=== PATIENT | male | born 1945 | race Caucasian/White ===

== ENCOUNTER 2020-01-18 12:40 | Emergency (ER) | payer MEDICARE ==
[2020-01-18 12:48] VITALS: RESP 18; TEMP 98
[2020-01-18] MEDS ORDERED: ONDANSETRON 4 MG/2 ML VIAL IVP STA (12:59)
[2020-01-18] MEDS ORDERED: SODIUM CHLORIDE 0.9% 500 ML 500 ML IV ONE (12:59)
[2020-01-18] MEDS ORDERED: MORPHINE SULFATE 4 MG/ML SYRINGE IV STA (12:59)
--- NOTE | 2020-01-18 13:14 | ED ---
Fall HPI - General Chief Complaint: Fall Stated Complaint: Fall, R ankle injury Source: patient Mode of arrival: EMS - History of Present Illness Initial Comments: This is a 74-year-old male with a history ofdiabetes and hyperlipidemia who presents emergency Department after a fall. The patient was reportedly up on a ladder about 8 feet. He lost his balance and fell off a ladder. He injured his ankle and has pain in his lower back as well. The patient states that he believes that he hit his head however is unsure. He denies any headache or neck pain however. The patient is not taking anticoagulation. Patient did receive 100 g of fentanyl and route and also some Zofran for some vomiting that he sustained. Patient complains mostly of pain in the right ankle and lower back. He denies any abdominal pain. Admits to some nausea however improved. Denies any diarrhea or constipation. Denies any chest pain or palpitations. No shortness of breath. Patient states he has no weakness or tingling in the extremity that is injured. No other acute complaints. - Related Data Home Medications Medication Instructions Recorded Confirmed Atorvastatin [Lipitor] 20 mg PO DAILY 01/02/14 01/02/14 glipiZIDE [Glucotrol] 5 mg PO AC-BRKFST 01/02/14 01/02/14 ramipriL [Altace] 5 mg PO BID 01/02/14 01/02/14 Previous Rx's Medication Instructions Recorded Hydrocodone/Acetaminophen [Frazee 1 each PO Q6HR PRN #20 tab 01/02/14 5-325] Allergies Allergy/AdvReac Type Severity Reaction Status Date / Time No Known Allergies Allergy Verified 01/02/14 17:08 Review of Systems ROS Statement: Those systems with pertinent positive or pertinent negative responses have been documented in the HPI. ROS Other: All systems not noted in ROS Statement are negative. Past Medical History Past Medical History: Diabetes Mellitus, Hypertension Additional Past Medical History / Comment(s): Kidney stones. History of Any Multi-Drug Resistant Organisms: None Reported Past Surgical History: Orthopedic Surgery Additional Past Surgical History / Comment(s): para thyroid surgery, prostate surgery Past Psychological History: No Psychological Hx Reported Smoking Status: Never smoker Past Alcohol Use History: Occasional Past Drug Use History: None Reported General Exam - General Exam Comments Initial Comments: Constitutional: [Awake alert] patient appears uncomfortable, was vomiting when I entered the room Head: [Normocephalic atraumatic], no obvious signs of head trauma. Eyes: [no conjunctival injection] [No scleral icterus] [EOMI], pupils are 3 mm and reactive bilaterally Neck: [No JVD] [Supple], no midline tenderness Heart: [Regular rate rhythm] [normal S1-S2] [no murmurs] Lungs: [Clear to auscultation bilaterally] [No wheezing] [No rales] Abdomen: [Soft] somewhat protuberant [nontender] back: The patient has no tenderness in the thoracic midline spine. No tenderness really in the lumbar spine as well. He has pain over the sacrum and coccygeal area. Extremities: [Non edematous] [DP pulses intact] [Radial pulses intact], there is swelling to the right lateral ankle. The patient is able to move his toes. DP is intact Neuro: [A&Ox3], the patient has 5 out of 5 strength in upper and lower [place] bilaterally, sensation intact to light touch [No focal neurologic deficits] Psych: [Appropriate mood and affect] Limitations: no limitations Course Vital Signs 01/18/20 01/18/20 12:44 13:52 Temperature 98 F Pulse Rate 76 90 Respiratory 18 18 Rate Blood Pressure 154/98 148/94 O2 Sat by Pulse 96 98 Oximetry - Reevaluation(s) Reevaluation #1: KG interpreted at 1310 shows normal sinus rhythm with a rate of 93. There are no abnormal ST segment changes or T-wave inversions. QTC is 477. Other intervals are normal. There is one PVC. 01/18/20 13:25 Medical Decision Making - Medical Decision Making his is 74-year-old male who presents emergency Department after a fall. The patient is found to have a calcaneal fracture, distal fibular fracture, T12 fracture, and sacral fracture. The patient does have a mild hematoma anterior to the sacrum. The patient did require multiple pain medications. He also is very nauseated and this is why the CT the abdomen and pelvis was performed however did not reveal any intra-abdominal organ injuries. Patient's going to be transferred to [facility] for his injuries. I did speak with Dr. Maria and Dr. Lyel who accepted transfer. Family was updated and agree with plan of care. - Lab Data Result diagrams: 01/18/20 13:12 01/18/20 13:12 Lab Results 01/18/20 01/18/20 01/18/20 Range/Units 13:12 13:12 13:12 WBC 15.1 H (3.8-10.6) k/uL RBC 4.06 L (4.30-5.90) m/uL Hgb 11.7 L (13.0-17.5) gm/dL Hct 35.2 L (39.0-53.0) % MCV 86.7 (80.0-100.0) fL MCH 28.7 (25.0-35.0) pg MCHC 33.1 (31.0-37.0) g/dL RDW 14.0 (11.5-15.5) % Plt Count 191 (150-450) k/uL Neutrophils % 89 % Lymphocytes % 6 % Monocytes % 3 % Eosinophils % 2 % Basophils % 0 % Neutrophils # 13.4 H (1.3-7.7) k/uL Lymphocytes # 0.8 L (1.0-4.8) k/uL Monocytes # 0.5 (0-1.0) k/uL Eosinophils # 0.3 (0-0.7) k/uL Basophils # 0.0 (0-0.2) k/uL PT 10.7 (9.0-12.0) sec INR 1.0 (<1.2) APTT 20.0 L (22.0-30.0) sec Sodium 142 (137-145) mmol/L Potassium 4.6 (3.5-5.1) mmol/L Chloride 110 H (98-107) mmol/L Carbon Dioxide 21 L (22-30) mmol/L Anion Gap 11 mmol/L BUN 32 H (9-20) mg/dL Creatinine 1.55 H (0.66-1.25) mg/dL Est GFR (CKD-EPI)AfAm 50 (>60 ml/min/1.73 sqM) Est GFR (CKD-EPI)NonAf 43 (>60 ml/min/1.73 sqM) Glucose 268 H (74-99) mg/dL POC Glucose (mg/dL) (75-99) mg/dL POC Glu Steel Rule Inspector ID Calcium 8.5 (8.4-10.2) mg/dL Serum Alcohol <10 mg/dL 01/18/20 Range/Units 14:43 WBC (3.8-10.6) k/uL RBC (4.30-5.90) m/uL Hgb (13.0-17.5) gm/dL Hct (39.0-53.0) % MCV (80.0-100.0) fL MCH (25.0-35.0) pg MCHC (31.0-37.0) g/dL RDW (11.5-15.5) % Plt Count (150-450) k/uL Neutrophils % % Lymphocytes % % Monocytes % % Eosinophils % % Basophils % % Neutrophils # (1.3-7.7) k/uL Lymphocytes # (1.0-4.8) k/uL Monocytes # (0-1.0) k/uL Eosinophils # (0-0.7) k/uL Basophils # (0-0.2) k/uL PT (9.0-12.0) sec INR (<1.2) APTT (22.0-30.0) sec Sodium (137-145) mmol/L Potassium (3.5-5.1) mmol/L Chloride (98-107) mmol/L Carbon Dioxide (22-30) mmol/L Anion Gap mmol/L BUN (9-20) mg/dL Creatinine (0.66-1.25) mg/dL Est GFR (CKD-EPI)AfAm (>60 ml/min/1.73 sqM) Est GFR (CKD-EPI)NonAf (>60 ml/min/1.73 sqM) Glucose (74-99) mg/dL POC Glucose (mg/dL) 303 H (75-99) mg/dL POC Glu Steel Rule Inspector ID Vinh Franklin Calcium (8.4-10.2) mg/dL Serum Alcohol mg/dL Disposition Clinical Impression: Sacral fracture, Thoracic compression fracture, Calcaneal fracture Disposition: OTHER INSTITUTION NOT DEFINED Condition: Stable Referrals: Jerzy Haney MD [Primary Care Provider] - 1-2 days - Out of Hospital Transfer - Req. Specs Out of Hospital Transfer - Requested Specifics: Other Emergency Center
[2020-01-18 13:21] LABS: Basophils % (A) 0 %; Eosinophils # (A) 0.3 k/uL (0-0.7); Eosinophils % (A) 2 %; HCT 35.2 % (39.0-53.0); HGB 11.7 gm/dL (13.0-17.5); Lymphocytes # (A) 0.8 k/uL (1.0-4.8); Lymphocytes % (A) 6 %; MCH 28.7 pg (25.0-35.0); MCHC 33.1 g/dL (31.0-37.0); MCV 86.7 fL (80.0-100.0); Mean Platelet Volume 7.9; Monocytes # (A) 0.5 k/uL (0-1.0); Monocytes % (A) 3 %; Neutrophils # (A) 13.4 k/uL (1.3-7.7); Neutrophils % (A) 89 %; Platelet Count 191 k/uL (150-450); RBC 4.06 m/uL (4.30-5.90); WBC 15.1 k/uL (3.8-10.6)
[2020-01-18 13:31] LABS: African American GFR (CKD) 50 (>60 ml/min/1.73 sqM); Alcohol <10 mg/dL; Anion Gap 11 mmol/L; Blood Urea Nitrogen 32 mg/dL (9-20); Calcium 8.5 mg/dL (8.4-10.2); Carbon Dioxide 21 mmol/L (22-30); Chloride 110 mmol/L (98-107); Glucose 268 mg/dL (74-99); Non-African American GFR(CKD) 43 (>60 ml/min/1.73 sqM); Potassium 4.6 mmol/L (3.5-5.1); Sodium 142 mmol/L (137-145)
[2020-01-18 13:39] LABS: Prothrombin Time 10.7 sec (9.0-12.0)
--- NOTE | 2020-01-18 13:58 | XR ---
EXAMINATION TYPE: XR ankle complete RT DATE OF EXAM: 01/18/2020 COMPARISON: NONE HISTORY: Pain TECHNIQUE: Frontal, lateral and oblique images of the right ankle are obtained. COMPARISON: None. FINDINGS: There Is evidence of calcaneal fracture posteriorly. There is also lateral osseous componen t noted adjacent to the distal fibula and this may reflect fibular fracture. Ankle mortise appears to be intact. Soft tissue swelling is seen. Vascular calcifications are noted. IMPRESSION: 1. Evidence for calcaneal fracture. 2. Suspected additional fracture involving the distal fibula.
--- NOTE | 2020-01-18 13:58 | CT ---
EXAMINATION TYPE: CT brain mo[place] owen DATE OF EXAM: 01/18/2020 COMPARISON: None HISTORY: Fall from ladder CT DLP: 1354.[address] of the brain was performed. The ventricles, basal cisterns and sulci overlying the cerebral convexities demonstrate mild enlargem ent. There is no evidence for intracranial hemorrhage or sulcal effacement. There is decreased attenuatio n about the periventricular white matter and deep white matter of both cerebral hemispheres, compatib le with chronic small vessel ischemia. No mass effects are seen. If symptoms persist consider MRI. Osseous calvarium is intact. IMPRESSION: 1. Age related atrophic and chronic small vessel ischemic change without acute intracranial process seen at this time. CT Cervical Spine: Unenhanced CT of the cervical spine was performed with bone and soft tissue window settings submitted . Coronal and sagittal reconstruction is obtained. There is normal alignment and prevertebral soft tissues. No evidence for acute cervical fracture . Scattered degenerative disc disease and spondylosis. Biapical scarring. IMPRESSION: 1. No evidence for acute fracture or subluxation of the cervical spine.
--- NOTE | 2020-01-18 13:59 | XR ---
EXAMINATION TYPE: XR chest 1V portable DATE OF EXAM: 01/18/2020 HISTORY: Shortness of breath. COMPARISON: None. TECHNIQUE: Single view of the chest is submitted. FINDINGS: Demonstrated are scattered senescent parenchymal change. There is no evidence for focal infiltrate. The heart is stable. There is ectasia of the thoracic aorta. Hilar and mediastinal structures are within normal limits. Degenerative changes are seen of the dorsal spine. IMPRESSION: 1. Chronic changes without evidence for acute pulmonary disease.
--- NOTE | 2020-01-18 13:59 | XR ---
EXAMINATION TYPE: XR pelvis AP view DATE OF EXAM: 01/18/2020 CLINICAL HISTORY: pain TECHNIQUE: Single view the pelvis is submitted. FINDINGS: No evidence for fracture, dislocation or bony lesion. Joint spaces are well-preserved. S I joints appear symmetric. IMPRESSION: 1. No acute fracture or dislocation seen. ICD 10 NO FRACTURE, INITIAL EVALUATION
--- NOTE | 2020-01-18 14:08 | CT ---
EXAMINATION TYPE: CT lumbar spine wo con DATE OF EXAM: 01/18/2020 1:51 PM COMPARISON: None HISTORY: Fall from ladder CT DLP: 1391.6 mGycm Automated exposure control for dose reduction was used. Unenhanced CT of the lumbar spine was performed. Bone and soft tissue window settings are submitted as well as coronal and sagittal reconstructions. There is superior endplate compression fracture noted to involve T11 and T12 estimated loss of height at T11 is approximately 30%. There is mild bony retropulsion identified measuring 4 mm. Mild effacem ent of the ventral thecal sac. Estimated loss of height involving the T12 vertebral segment is approx imately 40%. There is 6.6 mm bony retropulsion with bony fragment noted. Cord contact is difficult t o exclude as is cord compression. L1-L2: Normal disc space height. No disc herniation protrusion or central stenosis. No facet joint arthropathy. No evidence for foraminal encroachment. L2-L3: Degenerative disc space narrowing. No disc herniation protrusion or central stenosis. No face t joint arthropathy. No evidence for foraminal encroachment. L3-L4: Degenerative disc space narrowing. No disc herniation protrusion or central stenosis. No face t joint arthropathy. No evidence for foraminal encroachment. L4-L5: Mild degenerative disc space narrowing. Grade 1 anterolisthesis L4 and L5 measuring 3 mm. Post erior disc bulge resulting in moderate central stenosis. Facet joint arthropathy. L5-S1: Degenerative disc space narrowing with posterior disc bulge. No evidence for disc herniation o r protrusion. No central stenosis identified. IMPRESSION: 1. Superior endplate compression fractures of T11 and T12 greatest at T12. There is bony retropulsion at each level again greatest at T12 where a bony fragment is noted. T12 without cord contact or cord compression is difficult to exclude. No additional fractures identified. 2. Degenerative disc disease with disc bulging and central stenosis at L4-5.
[2020-01-18 14:47] LABS: Glucose,Whole Blood 303 mg/dL (75-99)
[2020-01-18] MEDS ORDERED: INSULIN ASPART (NovoLOG) 100 UNIT/ML VIAL SQ ONE (15:00)
--- NOTE | 2020-01-18 15:02 | CT ---
EXAMINATION TYPE: CT abdomen pelvis wo con DATE OF EXAM: 01/18/2020 COMPARISON: 07/13/2012 HISTORY: vomiting CT DLP: 570.4 mGycm Automated exposure control for dose reduction was used. There is some mild patchy infiltrate and atelectasis at the lung bases bilaterally. There is no pleur al effusion. Thoracic aorta is atheromatous and tortuous. There are small hepatic cysts measuring les s than 1 cm. There is small calcified gallstone. The bile ducts are not dilated. Spleen appears intac t. There is no evidence of pancreatic mass. The stomach is intact. There is small hiatal hernia. There is 2 cm lipoma of the left adrenal gland. The kidneys show no hydronephrosis. There is intermed iate density exophytic 1.8 cm cyst anterior left kidney. There is no retroperitoneal adenopathy. Uret ers are not dilated. Appendix appears normal. Bladder distends smoothly. There is prostatic calcifica tion. Prostate measures 5.2 cm. There is no inguinal hernia. There is some mild presacral fat strandi ng. There is a fracture of the mid sacrum with anterior displacement of the lower fragments 7 mm. Thi s is at the S2-S3 junction. There is no mesenteric edema. There is no ascites or free air. There is no bowel obstruction. There i s compression deformity of T12 and T11 vertebra 15% that appear to be acute fractures. There is T12 f ragment extension 25% into the spinal canal. The hip joints are intact. The pelvic ring is intact. Sacroiliac joints appear intact. IMPRESSION: Mildly displaced sacral fracture with presacral mild hematoma. Acute compression fractures of T11 and T12 with T12 fragment extension into the spinal canal. Left adrenal lipoma increased compared to old exam. There is clearing of the left renal stone and hyd ronephrosis compared to old exam.
[2020-01-18] MEDS ORDERED: MORPHINE SULFATE 4 MG/ML SYRINGE IVP STA (16:26)
[2020-01-18] MEDS ORDERED: TRIMETHOBENZAMIDE 100 MG/ML 2 ML VIAL IM STA (16:27)
[2020-01-18 16:52] VITALS: BP 142/87; PULSE 92
== END 2020-01-18 17:24 | disposition other institution (70) ==
LOC: EC 12:40
DX: S92.001A Unspecified fracture of right calcaneus, initial encounter for closed fracture (principal); S32.10XA Unspecified fracture of sacrum, initial encounter for closed fracture; S22.089A Unspecified fracture of T11-T12 vertebra, initial encounter for closed fracture; E11.9 Type 2 diabetes mellitus without complications; I10 Essential (primary) hypertension; E78.5 Hyperlipidemia, unspecified; Z79.84 Long term (current) use of oral hypoglycemic drugs; Z79.899 Other long term (current) drug therapy; W11.XXXA Fall on and from ladder, initial encounter
CPT/HCPCS: 36415; 93005; 80048; 85025; 85610; 85730; 72170; 73610; 71045; 72125; 72131; 70450; 74176; 99284; 96374; 96375; 96376; 96372; G0480; J2270; J3250; J2405; 80320

== ENCOUNTER 2020-01-26 13:42 | Inpatient (IN) | payer MEDICARE ==
[2020-01-26] MEDS ORDERED: SODIUM CHLORIDE 0.9% 1,000 ML IV STA (14:41)
[2020-01-26] MEDS ORDERED: ONDANSETRON 4 MG/2 ML VIAL IVP STA (14:41)
--- NOTE | 2020-01-26 14:41 | XR ---
EXAMINATION TYPE: XR abdomen acute w cxr DATE OF EXAM: 01/26/2020 COMPARISON: Chest x-ray 01/18/2020, CT 01/18/2020 HISTORY: Abdominal distention TECHNIQUE: Supine, upright, and frontal chest views of the abdomen are obtained. FINDINGS: Prominence of the mediastinum is again noted. Tortuous vascularity noted on CT. No evident airspace disease, pneumothorax, or pleural effusion. Heart is enlarged. Aorta is ectatic. There is no evidence for pneumoperitoneum. The bowel gas pattern is unremarkable as there is air throughout nondilated small and large bowel. No sizeable air fluid levels. No mass effects are seen. No unusual calcifications. Splenic artery calcifications are present in left upper quadrant. Retained fecal debris present throughout the distribution of the colon. IMPRESSION: Correlate for fecal stasis. Heart is enlarged.
--- NOTE | 2020-01-26 14:42 | ED ---
General Adult HPI - General Source: patient, EMS Mode of arrival: EMS Limitations: no limitations <Aristides Mcdaniel - Last Filed: 01/26/20 15:19> <Fredy Joshi - Last Filed: 01/26/20 15:58> - General Chief complaint: Nausea/Vomiting/Diarrhea Stated complaint: Nausea, Vomiting Time Seen by Provider: 01/26/20 14:02 - History of Present Illness Initial comments: Dictation was produced using [employer] dictation software. please excuse any grammatical, word or spelling errors. This patient was cared for during a federal and state declared state of emergency secondary to Covid 19 Chief Complaint: 74-year-old male sent from [facility] for nausea vomiting History of Present Illness: 74-year-old male who states she's been having nausea and vomiting since this morning at approximately 7 AM. Patient reports that he is at [facility] facility after he injured his bilateral lower extremities and vertebrae after fall from ladder about 8 feet. Accident occurred approximately one week ago. Patient states that since the accident has been having pretty bad nausea and vomiting however not as bad as today when he started vomiting excessively. There is concern by [facility] staff that he is vomiting feculent material. Patient denies any abdominal pain currently. He denies any diarrhea. He states he has not had a bowel movement in several days. Patient states she's fatigued from vomiting so much The ROS documented in this emergency department record has been reviewed and confirmed by me. Those systems with pertinent positive or negative responses have been documented in the HPI. All other systems are other negative and/or noncontributory. PHYSICAL EXAM: General Impression: Alert and oriented x3, not in acute distress HEENT: Normocephalic atraumatic, extra-ocular movements intact, pupils equal and reactive to light bilaterally, mucous membranes moist. Cardiovascular: Heart regular rate and rhythm Chest: Able to complete full sentences, no retractions, no tachypnea Abdomen: abdomen soft, non-tender, non-distended, no organomegaly Musculoskeletal: Pulses present and equal in all extremities, no peripheral edema Motor: no focal deficits noted Neurological: CN II-XII grossly intact, no focal motor or sensory deficits noted Skin: Intact with no visualized rashes Psych: Normal affect and mood ED course: 74-year-old male presents with nausea vomiting times one day and upon arrival are within acceptable limits. Patient's emesis reviewed at bedside. It appears slightly bilious without any signs of feculent material or blood. X-ray shows fecal stasis. Laboratory evaluation obtained. CBC, coag panel within acceptable limits. Urinalysis consistent with urinary tract infection. Any metabolic panel. Patient are for enema. Patient is signed out to Dr. Joshi for follow-up with pending labs and reevaluation after enema. EKG interpretation: Ventricular rate 97, sinus rhythm,. Interval T12, QRS 106, QTC 487. No TN prolongation, no QTC prolongation, no ST or T-wave changes noted. EKG compared to murmur 10/30/2019 showing no changes. Overall, this EKG is unremarkable (Aristides Mcdaniel) - Related Data Home Medications Medication Instructions Recorded Confirmed Insulin Detemir [Levemir Flextouch] 20 units SQ HS@209901/18/20 01/26/20 Sertraline [Zoloft] 50 mg PO DAILY@0800 01/18/20 01/26/20 metFORMIN HCL 250 mg PO DAILY@0801/18/20 01/26/20 Acetaminophen Tab [Tylenol] 975 mg PO TID@0600,1400,2200 01/26/20 01/26/20 Atorvastatin Calcium [Lipitor] 20 mg PO HS@209901/26/20 01/26/20 Calcium Acetate 1,000mg Tab 1,000 mg PO DAILY@0800 01/26/20 01/26/20 Docusate [Colace] 100 mg PO DAILY@0801/26/20 01/26/20 Enoxaparin Sodium [Lovenox] 30 mg SQ BID@0800,209901/26/20 01/26/20 Ferrous Sulfate [Iron] 325 mg PO BID@0800,1700 01/26/20 01/26/20 Magnesium Hydroxide [Milk of 2,400 mg PO DAILY PRN 01/26/20 01/26/20 Magnesia] Melatonin 1 mg PO HS 01/26/20 01/26/20 Na Phos,M-B/Na Phos,Di-Ba [Fleet 133 ml RECTAL DAILY PRN 01/26/20 01/26/20 Adult] Polyethylene Glycol 3350 [Miralax] 17 gm PO DAILY@0800 01/26/20 01/26/20 Tamsulosin HCl [Flomax] 0.4 mg PO DAILY@0800 01/26/20 01/26/20 amLODIPine BESYLATE 5 mg PO DAILY@0800 01/26/20 01/26/20 bisacodyL [Dulcolax] 10 mg RECTAL DAILY PRN 01/26/20 01/26/20 glipiZIDE [Glucotrol] 2.5 mg PO DAILY@0800 01/26/20 01/26/20 methocarbamoL [Robaxin] 500 mg PO TID@0600,1400,2200 01/26/20 01/26/20 oxyCODONE HCL [OxyIR] 5 mg PO Q4H PRN 01/26/20 01/26/20 Allergies Allergy/AdvReac Type Severity Reaction Status Date / Time No Known Allergies Allergy Verified 01/26/20 13:59 Review of Systems ROS Other: All systems not noted in ROS Statement are negative. <Aristides Mcdaniel - Last Filed: 01/26/20 15:19> ROS Other: All systems not noted in ROS Statement are negative. <Fredy Joshi - Last Filed: 01/26/20 15:58> ROS Statement: Those systems with pertinent positive or pertinent negative responses have been documented in the HPI. Past Medical History Past Medical History: Diabetes Mellitus, Hypertension Additional Past Medical History / Comment(s): Kidney stones. History of Any Multi-Drug Resistant Organisms: None Reported Past Surgical History: Orthopedic Surgery Additional Past Surgical History / Comment(s): para thyroid surgery, prostate surgery Past Psychological History: No Psychological Hx Reported Smoking Status: Never smoker Past Alcohol Use History: Occasional Past Drug Use History: None Reported <Aristides Mcdaniel - Last Filed: 01/26/20 15:19> General Exam Limitations: no limitations <Aristides Mcdaniel - Last Filed: 01/26/20 15:19> Course <Fredy Joshi - Last Filed: 01/26/20 15:58> Vital Signs 01/26/20 01/26/20 13:49 15:14 Temperature 99.0 F Pulse Rate 100 92 Respiratory 18 16 Rate Blood Pressure 157/84 161/67 O2 Sat by Pulse 98 97 Oximetry - Reevaluation(s) Reevaluation #1: 01/26/20 15:55 Patient does meet sepsis criteria diagnosed at 1555. 01/26/20 15:57 Blood culture and lactic acid have been ordered. IV antibiotics has been ordered. Additional antiemetics have been ordered. (Fredy Joshi) Medical Decision Making - Lab Data Result diagrams: 01/26/20 14:29 <Aristides Mcdaniel - Last Filed: 01/26/20 15:19> - Lab Data Result diagrams: 01/26/20 14:29 01/26/20 14:29 - Radiology Data Radiology results: image reviewed (Abdominal x-ray does show fecal stasis) <Fredy Joshi - Last Filed: 01/26/20 15:58> - Medical Decision Making Patient reevaluated and still feeling nauseated and did vomit. Patient and family do not feel comfortable with discharge. Abdomen soft and nontender. Patient denies abdominal pain. Case was discussed in detail with Dr. Valero, who will admit for Dr. Olivas. (Fredy Joshi) - Lab Data Lab Results 01/26/20 01/26/20 01/26/20 Range/Units 14:29 14:29 14:29 WBC 12.8 H (3.8-10.6) k/uL RBC 3.52 L (4.30-5.90) m/uL Hgb 10.1 L (13.0-17.5) gm/dL Hct 30.3 L (39.0-53.0) % MCV 86.1 (80.0-100.0) fL MCH 28.7 (25.0-35.0) pg MCHC 33.4 (31.0-37.0) g/dL RDW 15.5 (11.5-15.5) % Plt Count 226 (150-450) k/uL MPV 7.8 Neutrophils % 93 % Lymphocytes % 3 % Monocytes % 3 % Eosinophils % 0 % Basophils % 0 % Neutrophils # 11.9 H (1.3-7.7) k/uL Lymphocytes # 0.4 L (1.0-4.8) k/uL Monocytes # 0.4 (0-1.0) k/uL Eosinophils # 0.1 (0-0.7) k/uL Basophils # 0.0 (0-0.2) k/uL Poikilocytosis Slight PT 10.2 (9.0-12.0) sec INR 1.0 (<1.2) APTT 23.3 (22.0-30.0) sec Sodium (137-145) mmol/L Potassium (3.5-5.1) mmol/L Chloride (98-107) mmol/L Carbon Dioxide (22-30) mmol/L Anion Gap mmol/L BUN (9-20) mg/dL Creatinine (0.66-1.25) mg/dL Est GFR (CKD-EPI)AfAm (>60 ml/min/1.73 sqM) Est GFR (CKD-EPI)NonAf (>60 ml/min/1.73 sqM) Glucose (74-99) mg/dL Plasma Lactic Acid Onel (0.7-2.0) mmol/L Calcium (8.4-10.2) mg/dL Total Bilirubin (0.2-1.3) mg/dL AST (17-59) U/L ALT (4-49) U/L Alkaline Phosphatase (38-126) U/L Total Protein (6.3-8.2) g/dL Albumin (3.5-5.0) g/dL Lipase (23-300) U/L Urine Color Yellow Urine Appearance Cloudy (Clear) Urine pH 6.0 (5.0-8.0) Ur Specific [place] 1.018 (1.001-1.035) Urine Protein 3+ H (Negative) Urine Glucose (UA) 4+ H (Negative) Urine Ketones 1+ H (Negative) Urine Blood Moderate H (Negative) Urine Nitrite Negative (Negative) Urine Bilirubin Negative (Negative) Urine Urobilinogen 3.0 (<2.0) mg/dL Ur Leukocyte Esterase Large H (Negative) Urine RBC 22 H (0-5) /hpf Urine WBC >182 H (0-5) /hpf Urine WBC Clumps Many H (None) /hpf Urine Bacteria Occasional H (None) /hpf Urine Mucus Rare H (None) /hpf Urine Yeast (Budding) Many H (None) /hpf 01/26/20 01/26/20 Range/Units 14:29 14:29 WBC (3.8-10.6) k/uL RBC (4.30-5.90) m/uL Hgb (13.0-17.5) gm/dL Hct (39.0-53.0) % MCV (80.0-100.0) fL MCH (25.0-35.0) pg MCHC (31.0-37.0) g/dL RDW (11.5-15.5) % Plt Count (150-450) k/uL MPV Neutrophils % % Lymphocytes % % Monocytes % % Eosinophils % % Basophils % % Neutrophils # (1.3-7.7) k/uL Lymphocytes # (1.0-4.8) k/uL Monocytes # (0-1.0) k/uL Eosinophils # (0-0.7) k/uL Basophils # (0-0.2) k/uL Poikilocytosis PT (9.0-12.0) sec INR (<1.2) APTT (22.0-30.0) sec Sodium 137 (137-145) mmol/L Potassium 4.2 (3.5-5.1) mmol/L Chloride 101 (98-107) mmol/L Carbon Dioxide 27 (22-30) mmol/L Anion Gap 9 mmol/L BUN 26 H (9-20) mg/dL Creatinine 1.14 (0.66-1.25) mg/dL Est GFR (CKD-EPI)AfAm 73 (>60 ml/min/1.73 sqM) Est GFR (CKD-EPI)NonAf 63 (>60 ml/min/1.73 sqM) Glucose 255 H (74-99) mg/dL Plasma Lactic Acid Onel 1.9 (0.7-2.0) mmol/L Calcium 9.0 (8.4-10.2) mg/dL Total Bilirubin 2.2 H (0.2-1.3) mg/dL AST 32 (17-59) U/L ALT 16 (4-49) U/L Alkaline Phosphatase 74 (38-126) U/L Total Protein 7.0 (6.3-8.2) g/dL Albumin 3.9 (3.5-5.0) g/dL Lipase 88 (23-300) U/L Urine Color Urine Appearance (Clear) Urine pH (5.0-8.0) Ur Specific [place] (1.001-1.035) Urine Protein (Negative) Urine Glucose (UA) (Negative) Urine Ketones (Negative) Urine Blood (Negative) Urine Nitrite (Negative) Urine Bilirubin (Negative) Urine Urobilinogen (<2.0) mg/dL Ur Leukocyte Esterase (Negative) Urine RBC (0-5) /hpf Urine WBC (0-5) /hpf Urine WBC Clumps (None) /hpf Urine Bacteria (None) /hpf Urine Mucus (None) /hpf Urine Yeast (Budding) (None) /hpf Disposition <Aristides Mcdaniel - Last Filed: 01/26/20 15:19> Is patient prescribed a controlled substance at d/c from ED?: No Decision Time: 15:58 <Fredy Joshi - Last Filed: 01/26/20 15:58> Clinical Impression: Vomiting, Urinary tract infection, Sepsis Disposition: ADMITTED IP TO THIS HOSP Referrals: Rafat Olivas DO [Primary Care Provider] - 1-2 days
[2020-01-26 14:46] LABS: Basophils % (A) 0 %; Eosinophils # (A) 0.1 k/uL (0-0.7); Eosinophils % (A) 0 %; HCT 30.3 % (39.0-53.0); HGB 10.1 gm/dL (13.0-17.5); Lymphocytes # (A) 0.4 k/uL (1.0-4.8); Lymphocytes % (A) 3 %; MCH 28.7 pg (25.0-35.0); MCHC 33.4 g/dL (31.0-37.0); MCV 86.1 fL (80.0-100.0); Mean Platelet Volume 7.8; Monocytes # (A) 0.4 k/uL (0-1.0); Monocytes % (A) 3 %; Neutrophils # (A) 11.9 k/uL (1.3-7.7); Neutrophils % (A) 93 %; Platelet Count 226 k/uL (150-450); Poikilocytosis Slight; RBC 3.52 m/uL (4.30-5.90); RDW 15.5 % (11.5-15.5); WBC 12.8 k/uL (3.8-10.6)
[2020-01-26 14:57] LABS: Appearance,Urine Cloudy (Clear); Bacteria,Urine Occasional /hpf; Bilirubin,Urine Negative (Negative); Blood,Urine Moderate (Negative); Budding Yeast,Urine Many /hpf; Color,Urine Yellow; Glucose,Urine (UA) 4+ (Negative); Ketones,Urine 1+ (Negative); Leukocyte Esterase,Urine Large (Negative); Mucus,Urine Rare /hpf; Nitrite,Urine Negative (Negative); Partial Thromboplastin Time 23.3 sec (22.0-30.0); Protein,Urine 3+ (Negative); Prothrombin Time 10.2 sec (9.0-12.0); RBC,Urine 22 /hpf (0-5); Specific Gravity,Urine 1.018 (1.001-1.035); WBC,Urine >182 /hpf (0-5)
[2020-01-26 15:17] LABS: Albumin 3.9 g/dL (3.5-5.0); Potassium 4.2 mmol/L (3.5-5.1); Total Bilirubin 2.2 mg/dL (0.2-1.3)
[2020-01-26] MEDS ORDERED: cefTRIAXone IN SWFI 1,000 MG/10 ML SYRINGE IVP STA (15:19)
[2020-01-26] MEDS ORDERED: METOCLOPRAMIDE 5 MG/ML 2 ML VIAL IVP STA (15:57)
[2020-01-26] MEDS ORDERED: HYDROmorphone 0.5 MG/0.5 ML SYRINGE IVP PRN (15:58)
[2020-01-26] MEDS ORDERED: NALOXONE 0.4 MG/ML 1 ML VIAL IV PRN (15:58)
[2020-01-26] MEDS ORDERED: HYDROmorphone 1 MG/ML 1 ML SYRINGE IVP PRN (15:58)
[2020-01-26] MEDS ORDERED: ACETAMINOPHEN TAB 325 MG TAB PO PRN (15:58)
[2020-01-26] MEDS ORDERED: bisacodyL 10 MG SUPP RECTAL PRN (16:00)
[2020-01-26] MEDS ORDERED: NA PHOS,M-B/NA PHOS,DI-BA 133 ML ENEMA RECTAL PRN (16:00)
[2020-01-26] MEDS: PANTOPRAZOLE 40 MG/10 ML VIAL IV SCH (16:54)
[2020-01-26] MEDS: SODIUM CHLORIDE 0.9% 1,000 ML IV SCH (16:54)
[2020-01-26] MEDS: ATORVASTATIN 20 MG TAB PO SCH (22:09)
[2020-01-27] MEDS: ONDANSETRON 4 MG/2 ML VIAL IVP PRN ×3 (00:52→17:55)
[2020-01-27] MEDS: SODIUM CHLORIDE 0.9% 1,000 ML IV SCH ×2 (01:52→07:50)
[2020-01-27 07:32] LABS: Glucose,Whole Blood 238 mg/dL (75-99)
[2020-01-27] MEDS: polyethylene glycoL 3350 17 GM POWD.PACK PO SCH (08:03)
[2020-01-27] MEDS: DOCUSATE 100 MG CAP PO SCH (08:03)
[2020-01-27] MEDS: amLODIPine 5 MG TAB PO SCH (08:05)
[2020-01-27] MEDS: SERTRALINE 50 MG TAB PO SCH (08:05)
[2020-01-27] MEDS: INSULIN ASPART (NovoLOG) 100 UNIT/ML VIAL SQ SCH ×4 (08:11→20:59)
[2020-01-27] MEDS: PANTOPRAZOLE 40 MG/10 ML VIAL IV SCH (09:14)
[2020-01-27] MEDS ORDERED: MAGNESIUM HYDROXIDE 2,400 MG/10 ML CUP PO PRN (09:47)
[2020-01-27] MEDS: CALCIUM ACETATE 667 MG TAB PO SCH (10:51)
[2020-01-27] MEDS: TAMSULOSIN 0.4 MG CAP.ER.24H PO SCH (10:51)
[2020-01-27] MEDS: ENOXAPARIN 30 MG/0.3 ML SYRINGE SQ SCH ×2 (11:52→20:58)
[2020-01-27 12:05] LABS: Glucose,Whole Blood 197 mg/dL (75-99)
[2020-01-27] MEDS ORDERED: KETOROLAC 15 MG/ML 1 ML VIAL IVP PRN (12:30)
[2020-01-27] MEDS ORDERED: SCOPOLAMINE 1.5MG/72HR PATCH TRANSDERM SCH (12:45)
[2020-01-27] MEDS: LACTATED RINGERS 1,000 ML IV SCH ×2 (13:10→21:18)
[2020-01-27] MEDS: traMADol 50 MG TAB PO SCH ×3 (13:11→20:59)
[2020-01-27 14:25] LABS: African American GFR (CKD) 67 (>60 ml/min/1.73 sqM); Anion Gap 8 mmol/L; Blood Urea Nitrogen 29 mg/dL (9-20); Calcium 8.2 mg/dL (8.4-10.2); Carbon Dioxide 26 mmol/L (22-30); Chloride 107 mmol/L (98-107); Glucose 249 mg/dL (74-99); Non-African American GFR(CKD) 58 (>60 ml/min/1.73 sqM); Potassium 3.8 mmol/L (3.5-5.1); Sodium 141 mmol/L (137-145)
[2020-01-27] MEDS: methocarbamoL 500 MG TAB PO SCH ×2 (15:18→21:17)
[2020-01-27 17:16] LABS: Glucose,Whole Blood 159 mg/dL (75-99)
[2020-01-27 20:43] LABS: Glucose,Whole Blood 245 mg/dL (75-99)
[2020-01-27] MEDS: ATORVASTATIN 20 MG TAB PO SCH (20:58)
[2020-01-27] MEDS: MELATONIN 1 MG TAB PO SCH (20:59)
[2020-01-27] MEDS: INSULIN DETEMIR (LEVEMIR) 100 UNIT/ML SYR SQ SCH (20:59)
--- NOTE | 2020-01-27 22:09 | P.HPIM ---
History of Present Illness H&P Date: 01/27/20 Chief Complaint: Vomiting History of presenting complaint: This is 74-year-old patient of Dr. Olivas. 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 The accident happened about a week ago. He has been having some nausea vomiting since the accident but it much worse now. There is a concern about patient vomiting feculent matter. X-rays in the ER showed constipation. An MRI revealed a large bowel movement. Denies any fever and chills. No abdominal pain. When I saw the patient this morning still having some vomiting. Review of systems: GEN.: Tired EYES: None HEENT: None NECK: None RESPIRATORY: None CARDIOVASCULAR: None GASTROINTESTINAL: As above GENITOURINARY: None MUSCULOSKELETAL: Joint pains LYMPHATICS: None HEMATOLOGICAL: None PSYCHIATRY: None NEUROLOGICAL: None. Past medical history to include: Diabetes, hypertension, kidney stones Social history: No smoking history. Alcohol occasionally. Currently at [facility]. Physical examination: VITAL SIGNS: 99, 100, 18, 157/84, 98% on room air GENERAL: BMI 24.2, laying in bed, tired. EYES: Pupils equal. Conjunctiva normal. HEENT: External appearance of nose and ears normal, oral cavity grossly normal. NECK: JVD not raised; masses not palpable. HEART: First and second heart sounds are normal; no edema. LUNGS: Respiratory rate normal; clear to auscultation. ABDOMEN: Soft, nontender, liver spleen not palpable, no masses palpable. PSYCH: Alert and oriented x3; mood and affect anxiousl. NEUROLOGICAL: Cranial nerves grossly intact; no facial asymmetry, power and sensation grossly intact. LYMPHATICS: No lymph nodes palpable in the axilla and neck INVESTIGATIONS, reviewed in the clinical context: White count 12.8 hemoglobin 10.1 platelets 226 potassium 4.2 creatinine 1.14 Blood glucose 255 lipase 88 UA positive for leukoesterase WBC Stool occult blood positive COVID PCR not detected EKG tracing personally reviewed by me shows normal sinus rhythm Acute abdominal series-fecal stasis Assessment: -Fecal stasis leading to nausea vomiting syndrome side effect of pain medications including narcotics patient being on oxycodone. -Hyperlipidemia -Diabetes mellitus type 2 chronically on Levemir -Essential hypertension -BPH -Recent injury to both the ankles and vertebra seconded to fall from a ladder which patient is getting rehab -Acute UTI with cystitis Plan: Will DC patient's oxycodone and Dilaudid. Use Ultram. Skin add scopolamine patch. Home medications to be resumed. IV fluids. Put the patient on liquid diet. Started on IV ceftriaxone. Past Medical History Past Medical History: Diabetes Mellitus, Hypertension Additional Past Medical History / Comment(s): Kidney stones. History of Any Multi-Drug Resistant Organisms: None Reported Past Surgical History: Orthopedic Surgery Additional Past Surgical History / Comment(s): para thyroid surgery, prostate surgery Past Anesthesia/Blood Transfusion Reactions: No Reported Reaction Past Psychological History: No Psychological Hx Reported Smoking Status: Never smoker Past Alcohol Use History: Occasional Past Drug Use History: None Reported - Past Family History Mother Family Medical History: Diabetes Mellitus Additional Family Medical History / Comment(s): at 70 Father Family Medical History: Cancer Additional Family Medical History / Comment(s): at 82 colon cancer Sister(s) Family Medical History: Cancer Additional Family Medical History / Comment(s): at 72 from skin cancer Medications and Allergies Home Medications Medication Instructions Recorded Confirmed Type Insulin Detemir [Levemir Flextouch] 20 units SQ HS@209901/18/20 01/26/20 History Sertraline [Zoloft] 50 mg PO DAILY@0800 01/18/20 01/26/20 History metFORMIN HCL 250 mg PO DAILY@0800 01/18/20 01/26/20 History Acetaminophen Tab [Tylenol] 975 mg PO TID@0600,1400,2200 01/26/20 01/26/20 History Atorvastatin Calcium [Lipitor] 20 mg PO HS@209901/26/20 01/26/20 History Calcium Acetate 1,000mg Tab 1,000 mg PO DAILY@0800 01/26/20 01/26/20 History Docusate [Colace] 100 mg PO DAILY@0800 01/26/20 01/26/20 History Enoxaparin Sodium [Lovenox] 30 mg SQ BID@0800,2100 01/26/20 01/26/20 History Ferrous Sulfate [Iron] 325 mg PO BID@0800,1700 01/26/20 01/26/20 History Magnesium Hydroxide [Milk of 2,400 mg PO DAILY PRN 01/26/20 01/26/20 History Magnesia] Melatonin 1 mg PO HS 01/26/20 01/26/20 History Na Phos,M-B/Na Phos,Di-Ba [Fleet 133 ml RECTAL DAILY PRN 01/26/20 01/26/20 History Adult] Polyethylene Glycol 3350 [Miralax] 17 gm PO DAILY@0800 01/26/20 01/26/20 History Tamsulosin HCl [Flomax] 0.4 mg PO DAILY@0800 01/26/20 01/26/20 History amLODIPine BESYLATE 5 mg PO DAILY@0800 01/26/20 01/26/20 History bisacodyL [Dulcolax] 10 mg RECTAL DAILY PRN 01/26/20 01/26/20 History glipiZIDE [Glucotrol] 2.5 mg PO DAILY@0800 01/26/20 01/26/20 History methocarbamoL [Robaxin] 500 mg PO TID@0600,1400,2200 01/26/20 01/26/20 History oxyCODONE HCL [OxyIR] 5 mg PO Q4H PRN 01/26/20 01/26/20 History Allergies Allergy/AdvReac Type Severity Reaction Status Date / Time No Known Allergies Allergy Verified 01/26/20 13:59 Physical Exam Vitals: Vital Signs Temp Pulse Pulse Resp BP BP Pulse Ox 01/27/20 07:27 98.8 F 90 17 173/90 96 01/27/20 02:25 99.4 F 87 17 162/82 95 01/26/20 22:40 99.0 F 87 141/76 93 L 01/26/20 20:55 99.5 F 92 18 112/73 97 01/26/20 18:59 90 18 161/93 96 01/26/20 15:14 92 16 161/67 97 01/26/20 13:49 99.0 F 100 18 157/84 98 Intake and Output 01/26/20 01/27/20 01/27/20 22:59 06:59 14:59 Output Total 350 950 400 Balance -350 -950 -400 Output: Urine 350 950 400 Other: Voiding Method Indwelling Catheter # Bowel Movements 1 1 1 Weight 76.657 kg Results CBC & Chem 7: 01/26/20 14:29 01/27/20 13:21 Labs: Abnormal Lab Results - Last 24 Hours (Table) 01/26/20 01/26/20 01/26/20 Range/Units 14:29 14:29 14:29 WBC 12.8 H (3.8-10.6) k/uL RBC 3.52 L (4.30-5.90) m/uL Hgb 10.1 L (13.0-17.5) gm/dL Hct 30.3 L (39.0-53.0) % Neutrophils # 11.9 H (1.3-7.7) k/uL Lymphocytes # 0.4 L (1.0-4.8) k/uL BUN 26 H (9-20) mg/dL Glucose 255 H (74-99) mg/dL POC Glucose (mg/dL) (75-99) mg/dL Total Bilirubin 2.2 H (0.2-1.3) mg/dL Urine Protein 3+ H (Negative) Urine Glucose (UA) 4+ H (Negative) Urine Ketones 1+ H (Negative) Urine Blood Moderate H (Negative) Ur Leukocyte Esterase Large H (Negative) Urine RBC 22 H (0-5) /hpf Urine WBC >182 H (0-5) /hpf Urine WBC Clumps Many H (None) /hpf Urine Bacteria Occasional H (None) /hpf Urine Mucus Rare H (None) /hpf Urine Yeast (Budding) Many H (None) /hpf 01/27/20 Range/Units 07:31 WBC (3.8-10.6) k/uL RBC (4.30-5.90) m/uL Hgb (13.0-17.5) gm/dL Hct (39.0-53.0) % Neutrophils # (1.3-7.7) k/uL Lymphocytes # (1.0-4.8) k/uL BUN (9-20) mg/dL Glucose (74-99) mg/dL POC Glucose (mg/dL) 238 H (75-99) mg/dL Total Bilirubin (0.2-1.3) mg/dL Urine Protein (Negative) Urine Glucose (UA) (Negative) Urine Ketones (Negative) Urine Blood (Negative) Ur Leukocyte Esterase (Negative) Urine RBC (0-5) /hpf Urine WBC (0-5) /hpf Urine WBC Clumps (None) /hpf Urine Bacteria (None) /hpf Urine Mucus (None) /hpf Urine Yeast (Budding) (None) /hpf Microbiology - Last 24 Hours (Table) 01/26/20 14:29 Urine Culture - Preliminary Urine,Voided Thrombosis Risk Factor Assmnt - Choose All That Apply Any of the Below Risk Factors Present?: No Other Risk Factors: Yes Each Risk Factor Represents 3 Points: Age 75 years or older Thrombosis Risk Factor Assessment Total Risk Factor Score: 3 Thrombosis Risk Factor Assessment Level: Moderate Risk
[2020-01-28] MEDS: methocarbamoL 500 MG TAB PO SCH ×3 (05:53→20:39)
[2020-01-28 06:49] LABS: Glucose,Whole Blood 122 mg/dL (75-99)
[2020-01-28] MEDS: INSULIN ASPART (NovoLOG) 100 UNIT/ML VIAL SQ SCH ×4 (07:34→20:38)
[2020-01-28] MEDS: PANTOPRAZOLE 40 MG/10 ML VIAL IV SCH (08:57)
[2020-01-28] MEDS: CALCIUM ACETATE 667 MG TAB PO SCH (08:57)
[2020-01-28] MEDS: ENOXAPARIN 30 MG/0.3 ML SYRINGE SQ SCH ×2 (08:57→20:38)
[2020-01-28] MEDS: traMADol 50 MG TAB PO SCH ×4 (08:58→20:39)
[2020-01-28] MEDS: SERTRALINE 50 MG TAB PO SCH (08:58)
[2020-01-28] MEDS: TAMSULOSIN 0.4 MG CAP.ER.24H PO SCH (08:58)
[2020-01-28] MEDS: polyethylene glycoL 3350 17 GM POWD.PACK PO SCH (08:58)
[2020-01-28] MEDS: DOCUSATE 100 MG CAP PO SCH (08:58)
[2020-01-28] MEDS: amLODIPine 5 MG TAB PO SCH (08:58)
[2020-01-28 09:22] LABS: African American GFR (CKD) 75.7 (60.0-200.0); Anion Gap 9.3 mmol/L (4.00-12.00); BUN/Creat Ratio 20.91 Ratio (12.00-20.00); Calcium 8.4 mg/dL (8.7-10.3); Carbon Dioxide 27.7 mmol/L (21.6-31.8); Non-African American GFR(CKD) 65.3 (60.0-200.0)
[2020-01-28] MEDS: LACTATED RINGERS 1,000 ML IV SCH ×4 (10:32→20:38)
[2020-01-28 11:34] LABS: Glucose,Whole Blood 125 mg/dL (75-99)
[2020-01-28] MEDS: ONDANSETRON 4 MG/2 ML VIAL IVP PRN (13:41)
[2020-01-28 16:55] LABS: Glucose,Whole Blood 142 mg/dL (75-99)
[2020-01-28 20:36] LABS: Glucose,Whole Blood 153 mg/dL (75-99)
[2020-01-28] MEDS: ATORVASTATIN 20 MG TAB PO SCH (20:38)
[2020-01-28] MEDS: INSULIN DETEMIR (LEVEMIR) 100 UNIT/ML SYR SQ SCH (20:38)
[2020-01-28] MEDS: MELATONIN 1 MG TAB PO SCH (20:39)
--- NOTE | 2020-01-28 22:11 | P.PN ---
Progress Note - Text Progress Note Date: 01/28/20 Chief Complaint: Vomiting History of presenting complaint: This is 74-year-old patient of Dr. Olivas. 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 He has been at [facility] off to having injury to both lower extremities and vertebra after fall from a ladder about 8 feet. The accident happened about a week ago. He has been having some nausea vomiting since the accident but it much worse now. There is a concern about patient vomiting feculent matter. X-rays in the ER showed constipation. An MR given in the ER- large bowel movement. Denies any fever and chills. No abdominal pain. When I saw the patient this morning still having some vomiting. Patient admitted with severe obstipation secondary to pain medications. Patient's narcotics were discontinued. Given IV fluids. Put on a scopolamine patch. Also acute UTI with cystitis. Put on IV ceftriaxone. Today-small amount of vomiting. Afraid to eat. Feels better. No abdominal pain. Pain control. Patient reassured. Review of systems: Was done for constitutional, cardiovascular, GI, pulmonary. relevant finding as above Active Medications Acetaminophen (Acetaminophen Tab 325 Mg Tab) 650 mg PO Q6HR PRN PRN Reason: Mild Pain or Fever > 100.5 Amlodipine Besylate (Amlodipine 5 Mg Tab) 5 mg PO DAILY@0800 [facility] Last Admin: 01/28/20 08:58 Dose: 5 mg Documented by: Atorvastatin Calcium (Atorvastatin 20 Mg Tab) 20 mg PO HS@2100 [facility] Last Admin: 01/28/20 20:38 Dose: 20 mg Documented by: Bisacodyl (Bisacodyl 10 Mg Supp) 10 mg RECTAL DAILY PRN PRN Reason: Constipation Calcium Acetate (Calcium Acetate 667 Mg Tab) 1,334 mg PO DAILY@0800 [facility] Last Admin: 01/28/20 08:57 Dose: 1,334 mg Documented by: Docusate Sodium (Docusate 100 Mg Cap) 100 mg PO DAILY@0800 [facility] Last Admin: 01/28/20 08:58 Dose: 100 mg Documented by: Enoxaparin Sodium (Enoxaparin 30 Mg/0.3 Ml Syringe) 30 mg SQ BID@0800,2100 [facility] Last Admin: 01/28/20 20:38 Dose: 30 mg Documented by: Ceftriaxone Sodium 1 gm/ (Sodium Chloride) 50 mls @ 100 mls/hr IVPB Q24HR [facility] Last Admin: 01/28/20 08:59 Dose: 100 mls/hr Documented by: Lactated Ringer's (Lactated Ringers) 1,000 mls @ 150 mls/hr IV .Q6H40M [facility] Last Admin: 01/28/20 20:38 Dose: 150 mls/hr Documented by: Insulin Aspart (Insulin Aspart (Novolog) 100 Unit/Ml Vial) 0 unit SQ [facility]; Protocol Last Admin: 01/28/20 20:38 Dose: Not Given Documented by: Insulin Detemir (Insulin Detemir (Levemir) 100 Unit/Ml Syr) 20 unit SQ HS@2100 [facility] Last Admin: 01/28/20 20:38 Dose: 20 unit Documented by: Ketorolac Tromethamine (Ketorolac 15 Mg/Ml 1 Ml Vial) 15 mg IVP Q6HR PRN PRN Reason: Pain Stop: 01/30/20 12:30 Magnesium Hydroxide (Magnesium Hydroxide 2,400 Mg/10 Ml Cup) 2,400 mg PO DAILY PRN PRN Reason: Constipation Melatonin (Melatonin 1 Mg Tab) 1 mg PO [facility] Last Admin: 01/28/20 20:39 Dose: 1 mg Documented by: Methocarbamol (Methocarbamol 500 Mg Tab) 500 mg PO TID@0600,1400,2200 [facility] Last Admin: 01/28/20 20:39 Dose: 500 mg Documented by: Naloxone HCl (Naloxone 0.4 Mg/Ml 1 Ml Vial) 0.2 mg IV Q2M PRN PRN Reason: Opioid Reversal Ondansetron HCl (Ondansetron 4 Mg/2 Ml Vial) 4 mg IVP Q8HR PRN PRN Reason: Nausea And Vomiting Last Admin: 01/28/20 13:41 Dose: 4 mg Documented by: Pantoprazole Sodium (Pantoprazole 40 Mg/10 Ml Vial) 40 mg IV DAILY [facility] Last Admin: 01/28/20 08:57 Dose: 40 mg Documented by: Polyethylene Glycol (Polyethylene Glycol 3350 17 Gm Powd.Pack) 17 gm PO DAILY@0800 [facility] Last Admin: 01/28/20 08:58 Dose: 17 gm Documented by: Scopolamine (Scopolamine 1.5mg/72hr Patch) 1 patch TRANSDERM Q72H [facility] Last Admin: 01/27/20 13:12 Dose: 1 patch Documented by: Sertraline HCl (Sertraline 50 Mg Tab) 50 mg PO DAILY@0800 [facility] Last Admin: 01/28/20 08:58 Dose: 50 mg Documented by: Sodium Biphosphate/Sodium Phosphate (Na Phos,M-B/Na Phos,Di-Ba 133 Ml Enema) 133 ml RECTAL DAILY PRN PRN Reason: Constipation Tamsulosin HCl (Tamsulosin 0.4 Mg Cap.Er.24h) 0.4 mg PO DAILY@0800 [facility] Last Admin: 01/28/20 08:58 Dose: 0.4 mg Documented by: Tramadol HCl (Tramadol 50 Mg Tab) 50 mg PO QID [facility] Last Admin: 01/28/20 20:39 Dose: 50 mg Documented by: Physical examination: VITAL SIGNS: 99.4, 88, 17, 153/87, 96% room air GENERAL: Laying in bed, looks less tired EYES: Pupils equal. Conjunctiva normal. HEENT: External appearance of nose and ears normal, oral cavity dry mucous membranes. NECK: JVD not raised; masses not palpable. HEART: First and second heart sounds are normal; no edema. LUNGS: Respiratory rate normal; clear to auscultation. ABDOMEN: Soft, nontender, liver spleen not palpable, no masses palpable. PSYCH: Alert and oriented x3; mood and affect anxiousl. INVESTIGATIONS, reviewed in the clinical context: Potassium 4 creatinine 1.1 Previous testing White count 12.8 hemoglobin 10.1 platelets 226 potassium 4.2 creatinine 1.14 Blood glucose 255 lipase 88 UA positive for leukoesterase WBC Stool occult blood positive COVID PCR not detected EKG tracing personally reviewed by me shows normal sinus rhythm Acute abdominal series-fecal stasis Assessment: -Fecal stasis leading to nausea vomiting syndrome side effect of pain medications including narcotics patient being on oxycodone. Patient narcotics discontinued. Had a good bowel movement to enema. -Clinical dehydration -Hyperlipidemia -Diabetes mellitus type 2 chronically on Levemir -Essential hypertension -BPH -Recent injury to both the ankles and vertebra seconded to fall from a ladder which patient is getting rehab -Acute UTI with cystitis Plan: Patient put on liquid diet. Spoke to the aide. Advance diet as tolerated. Co ntinue with IV fluids and antibiotics.
[2020-01-29 02:15] VITALS: RESP 20; TEMP 98.4
[2020-01-29] MEDS: methocarbamoL 500 MG TAB PO SCH ×2 (05:39→14:12)
[2020-01-29 06:51] LABS: Glucose,Whole Blood 96 mg/dL (75-99)
[2020-01-29] MEDS: INSULIN ASPART (NovoLOG) 100 UNIT/ML VIAL SQ SCH ×2 (07:10→11:43)
[2020-01-29 07:12] VITALS: BP 147/83; PULSE 74
[2020-01-29] MEDS: polyethylene glycoL 3350 17 GM POWD.PACK PO SCH (07:28)
[2020-01-29] MEDS: CALCIUM ACETATE 667 MG TAB PO SCH (07:29)
[2020-01-29] MEDS: amLODIPine 5 MG TAB PO SCH (07:30)
[2020-01-29] MEDS: TAMSULOSIN 0.4 MG CAP.ER.24H PO SCH (07:30)
[2020-01-29] MEDS: SERTRALINE 50 MG TAB PO SCH (07:30)
[2020-01-29] MEDS: DOCUSATE 100 MG CAP PO SCH (07:31)
[2020-01-29] MEDS: ENOXAPARIN 30 MG/0.3 ML SYRINGE SQ SCH (07:31)
[2020-01-29] MEDS: METOCLOPRAMIDE 5 MG TAB PO SCH ×2 (07:31→14:12)
[2020-01-29 08:04] LABS: Basophils % (A) 1 %; Eosinophils # (A) 0.1 k/uL (0-0.7); Eosinophils % (A) 1 %; HCT 26.5 % (39.0-53.0); HGB 9.3 gm/dL (13.0-17.5); Lymphocytes # (A) 0.6 k/uL (1.0-4.8); Lymphocytes % (A) 9 %; MCH 30.4 pg (25.0-35.0); MCHC 34.9 g/dL (31.0-37.0); MCV 87.2 fL (80.0-100.0); Mean Platelet Volume 7.7; Monocytes # (A) 0.4 k/uL (0-1.0); Monocytes % (A) 6 %; Neutrophils # (A) 5.9 k/uL (1.3-7.7); Neutrophils % (A) 82 %; Platelet Count 234 k/uL (150-450); Poikilocytosis Moderate; RBC 3.04 m/uL (4.30-5.90); RDW 14.5 % (11.5-15.5); WBC 7.2 k/uL (3.8-10.6)
[2020-01-29] MEDS: PANTOPRAZOLE 40 MG/10 ML VIAL IV SCH (09:33)
[2020-01-29] MEDS: traMADol 50 MG TAB PO SCH ×2 (09:34→14:13)
[2020-01-29 11:10] LABS: African American GFR (CKD) 68.1 (60.0-200.0); Anion Gap 13.1 mmol/L (4.00-12.00); BUN/Creat Ratio 16.67 Ratio (12.00-20.00); Calcium 8.5 mg/dL (8.7-10.3); Carbon Dioxide 25.9 mmol/L (21.6-31.8); Non-African American GFR(CKD) 58.8 (60.0-200.0); Potassium 3.3 mmol/L (3.5-5.5)
[2020-01-29 11:20] LABS: Glucose,Whole Blood 98 mg/dL (75-99)
[2020-01-29] MEDS: LACTATED RINGERS 1,000 ML IV SCH (13:48)
--- NOTE | 2020-01-29 15:03 | P.DS ---
Providers Date of admission: 01/26/20 15:58 Expected date of discharge: 01/29/20 Attending physician: Bruce Valero Primary care physician: Rafat Olivas [facility] Course: Chief Complaint: Vomiting History of presenting complaint: This is 74-year-old patient of Dr. Olivas. 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 He has been at [facility] off to having injury to both lower extremities and vertebra after fall from a ladder about 8 feet. The accident happened about a week ago. He has been having some nausea vomiting since the accident but it much worse now. There is a concern about patient vomiting feculent matter. X-rays in the ER showed constipation. An MR given in the ER- large bowel movement. Denies any fever and chills. No abdominal pain. When I saw the patient this morning still having some vomiting. Patient admitted with severe obstipation secondary to pain medications. Patient's narcotics were discontinued. Given IV fluids. Put on a scopolamine patch. Also acute UTI with cystitis. Put on IV ceftriaxone. Today-oral intake improved. No nausea vomiting. Pain control. Physical examination: VITAL SIGNS:98.4, 74, 20, 147/83 96% room air GENERAL: Laying in bed,better EYES: Pupils equal. Conjunctiva normal. HEENT: External appearance of nose and ears normal, oral cavity dry mucous membranes. NECK: JVD not raised; masses not palpable. HEART: First and second heart sounds are normal; no edema. LUNGS: Respiratory rate normal; clear to auscultation. ABDOMEN: Soft, nontender, liver spleen not palpable, no masses palpable. PSYCH: Alert and oriented x3; mood and affect less anxious INVESTIGATIONS, reviewed in the clinical context: Potassium 4 creatinine 1.1 Previous testing White count 12.8 hemoglobin 10.1 platelets 226 potassium 4.2 creatinine 1.14 Blood glucose 255 lipase 88 UA positive for leukoesterase WBC. Urine dpqllmy-[id number] bacilli Stool occult blood positive COVID PCR not detected EKG tracing personally reviewed by me shows normal sinus rhythm Acute abdominal series-fecal stasis Assessment: -Fecal stasis leading to nausea vomiting syndrome side effect of pain medications including narcotics patient being on oxycodone. Patient narcotics discontinued. Had a good bowel movement to enema. -Clinical dehydration -Hyperlipidemia -Diabetes mellitus type 2 chronically on Levemir -Essential hypertension -BPH -Recent injury to both the ankles and vertebra seconded to fall from a ladder which patient is getting rehab -Acute UTI with cystitis, from gram-negative bacilli disposition: [facility] Patient Condition at Discharge: Stable Plan - Discharge Summary Discharge Rx Participant: No New Discharge Prescriptions: New traMADol HCl [Ultram] 50 mg PO Q6H PRN #12 tab PRN Reason: Pain Continue Sertraline [Zoloft] 50 mg PO DAILY@0800 Insulin Detemir [Levemir Flextouch] 20 units SQ HS@2100 Melatonin 1 mg PO HS Magnesium Hydroxide [Milk of Magnesia] 2,400 mg PO DAILY PRN PRN Reason: Constipation bisacodyL [Dulcolax] 10 mg RECTAL DAILY PRN PRN Reason: Constipation Na Phos,M-B/Na Phos,Di-Ba [Fleet Adult] 133 ml RECTAL DAILY PRN PRN Reason: Constipation Acetaminophen Tab [Tylenol] 975 mg PO TID@0600,1400,2200 Enoxaparin Sodium [Lovenox] 30 mg SQ BID@0800,2100 Ferrous Sulfate [Iron] 325 mg PO BID@0800,1700 Tamsulosin HCl [Flomax] 0.4 mg PO DAILY@0800 Polyethylene Glycol 3350 [Miralax] 17 gm PO DAILY@0800 amLODIPine BESYLATE 5 mg PO DAILY@0800 Calcium Acetate 1,000mg Tab 1,000 mg PO DAILY@0800 Atorvastatin Calcium [Lipitor] 20 mg PO HS@2100 Discontinued oxyCODONE HCL [OxyIR] 5 mg PO Q4H PRN PRN Reason: Pain Docusate [Colace] 100 mg PO DAILY@0800 No Action metFORMIN HCL 250 mg PO DAILY@0800 methocarbamoL [Robaxin] 500 mg PO TID@0600,1400,2200 glipiZIDE [Glucotrol] 2.5 mg PO DAILY@0800 Discharge Medication List Insulin Detemir [Levemir Flextouch] 20 units SQ HS@2100 01/18/20 [History] Sertraline [Zoloft] 50 mg PO DAILY@0800 01/18/20 [History] metFORMIN HCL 250 mg PO DAILY@0800 01/18/20 [History] Acetaminophen Tab [Tylenol] 975 mg PO TID@0600,1400,2200 01/26/20 [History] Atorvastatin Calcium [Lipitor] 20 mg PO HS@2100 01/26/20 [History] Calcium Acetate 1,000mg Tab 1,000 mg PO DAILY@0800 01/26/20 [History] Enoxaparin Sodium [Lovenox] 30 mg SQ BID@0800,2100 01/26/20 [History] Ferrous Sulfate [Iron] 325 mg PO BID@0800,1700 01/26/20 [History] Magnesium Hydroxide [Milk of Magnesia] 2,400 mg PO DAILY PRN 01/26/20 [History] Melatonin 1 mg PO HS 01/26/20 [History] Na Phos,M-B/Na Phos,Di-Ba [Fleet Adult] 133 ml RECTAL DAILY PRN 01/26/20 [History] Polyethylene Glycol 3350 [Miralax] 17 gm PO DAILY@0800 01/26/20 [History] Tamsulosin HCl [Flomax] 0.4 mg PO DAILY@0800 01/26/20 [History] amLODIPine BESYLATE 5 mg PO DAILY@0800 01/26/20 [History] bisacodyL [Dulcolax] 10 mg RECTAL DAILY PRN 01/26/20 [History] glipiZIDE [Glucotrol] 2.5 mg PO DAILY@0800 01/26/20 [History] methocarbamoL [Robaxin] 500 mg PO TID@0600,1400,2200 01/26/20 [History] traMADol HCl [Ultram] 50 mg PO Q6H PRN #12 tab 01/29/20 [Rx] Follow up Appointment(s)/Referral(s): Rafat Olivas DO [Primary Care Provider] - 1-2 days Activity/Diet/Wound Care/Special Instructions: soft bland diet
[2020-01-29] MEDS ORDERED: LEVOFLOXACIN 500 MG TAB PO STA (15:05)
[2020-01-29 16:32] LABS: Glucose,Whole Blood 102 mg/dL (75-99)
--- NOTE | 2020-01-31 10:52 | CDI ---
Documentation Clarification Form Date: 01/31/20 From: Ekta Malone CCS Phone: If you have a question about this query, please contact Georgie Martinez, Hand Braille Transcriber at [phone] between 8am and 5pm. Admit Date: 01/26/20 Discharge Date:01/29/20 Patient Name: Toribio Martin Visit Number: [id number] ATTENTION: The Clinical Documentation Specialists (CDI) and [facility] Coding Staff appreciate your assistance in clarifying documentation. Please respond to the clarification below the line at the bottom and electronically sign. The CDI & [facility] Coding staff will review the response and follow-up if needed. Please note: Queries are made part of the Legal Health Record. If you have any questions, please contact the author of this message via ITS. Dear Dr. Valero, The diagnosis sepsis was documented in the ED notes, but is not noted in subsequent documentation. History/Risk Factors: Acute cystitis, DM, HTN, BPH, Dehydration, Drug induced constipation Clinical Indicators: Elevated WBC, CA 100, Acute Cystitis Labs: WBC 12.8, Lactic Acid 1.9 Blood culture: No growth after 96 hours Urine culture: Escherichia coli Treatment: Rocephin 1,000 mg IV ONCE STA, Rocephin 1 gm IVPB Q 24 HR, Levaquin 500 mg PO, Saline 0.9% 1,000 ml IV Please clarify if the sepsis was Present/active this admission Treated and resolved this admission Ruled out Other, please specify Clinically unable to determine No sepsis-ruled out MTDD
== END 2020-01-29 16:50 | DRG 392 ==
LOC: EC 13:42 → 4SSUR 15:58
PROVIDERS: ADMIT Hospitalist; ATTEND Hospitalist
DX: K59.03 Drug induced constipation (principal); N30.00 Acute cystitis without hematuria; Z20.828 Contact with and (suspected) exposure to other viral communicable diseases; Z79.4 Long term (current) use of insulin; E11.9 Type 2 diabetes mellitus without complications; I10 Essential (primary) hypertension; E78.5 Hyperlipidemia, unspecified; N40.0 Benign prostatic hyperplasia without lower urinary tract symptoms; E86.0 Dehydration; S99.912D Unspecified injury of left ankle, subsequent encounter; S99.911D Unspecified injury of right ankle, subsequent encounter; S39.92XD Unspecified injury of lower back, subsequent encounter; T40.2X5A Adverse effect of other opioids, initial encounter; W11.XXXD Fall on and from ladder, subsequent encounter; Z79.899 Other long term (current) drug therapy; Z87.442 Personal history of urinary calculi; Z83.3 Family history of diabetes mellitus; Z80.0 Family history of malignant neoplasm of digestive organs; Z80.8 Family history of malignant neoplasm of other organs or systems
CPT/HCPCS: 36415; 74022; 80048; 80053; 81001; 82272; 83605; 83690; 85025; 85610; 85730; 87040; 87077; 87086; 87186; 87635; 93005; 96361; 96374; 96375; 99285

== ENCOUNTER 2020-02-16 11:58 | Inpatient (IN) | payer MEDICARE ==
[2020-02-16] MEDS ORDERED: SODIUM CHLORIDE 0.9% 1,000 ML IV STA (12:50)
[2020-02-16] MEDS ORDERED: ONDANSETRON 4 MG/2 ML VIAL IVP STA (12:50)
--- NOTE | 2020-02-16 13:04 | ED ---
General Adult HPI - General Chief complaint: Weakness Stated complaint: Weakness,+Covid Time Seen by Provider: 02/16/20 12:10 Source: patient, EMS, RN notes reviewed, old records reviewed Mode of arrival: EMS Limitations: no limitations - History of Present Illness Initial comments: This is a 74-year-old male who recently had surgery on the right foot and was in [facility]. Patient states she contracted a cold about a week ago. Patient states since that time he said diarrhea and today he started vomiting. Patient states he is extremely weak and is unable to get up and around to take care of himself at home. Patient denies any recent fever chills. Patient denies any lightheadedness or dizziness. Patient denies any chest pain diffi culty breathing or shortness of breath. - Related Data Home Medications Medication Instructions Recorded Confirmed Insulin Detemir [Levemir Flextouch] 20 units SQ HS@2100 01/18/20 02/16/20 Sertraline [Zoloft] 100 mg PO DAILY 01/18/20 02/16/20 metFORMIN HCL 250 mg PO DAILY@0800 01/18/20 02/16/20 Acetaminophen Tab [Tylenol] 975 mg PO TID@0600,1400,2200 01/26/20 02/16/20 Atorvastatin Calcium [Lipitor] 20 mg PO HS@2100 01/26/20 02/16/20 Enoxaparin Sodium [Lovenox] 30 mg SQ BID 01/26/20 02/16/20 Ferrous Sulfate [Iron] 325 mg PO BID 01/26/20 02/16/20 Magnesium Hydroxide [Milk of 2,400 mg PO DAILY PRN 01/26/20 02/16/20 Magnesia] Na Phos,M-B/Na Phos,Di-Ba [Fleet 133 ml RECTAL DAILY PRN 01/26/20 02/16/20 Adult] Polyethylene Glycol 3350 [Miralax] 17 gm PO DAILY 01/26/20 02/16/20 Tamsulosin HCl [Flomax] 0.4 mg PO DAILY 01/26/20 02/16/20 amLODIPine BESYLATE 5 mg PO DAILY 01/26/20 02/16/20 bisacodyL [Dulcolax] 10 mg RECTAL DAILY PRN 01/26/20 02/16/20 glipiZIDE [Glucotrol] 2.5 mg PO DAILY@0800 01/26/20 02/16/20 methocarbamoL [Robaxin] 500 mg PO TID@0600,1400,2200 01/26/20 02/16/20 INSULIN ASPART (NovoLOG) [NovoLOG See Protocol SQ AC-TID 02/16/20 02/16/20 (formulary)] LORazepam [Ativan] 0.25 mg PO BID@0900,1700 02/16/20 02/16/20 LORazepam [Ativan] 0.5 mg PO HS 02/16/20 02/16/20 Previous Rx's Medication Instructions Recorded traMADol HCl [Ultram] 50 mg PO Q6H PRN #12 tab 01/29/20 Allergies Allergy/AdvReac Type Severity Reaction Status Date / Time No Known Allergies Allergy Verified 02/16/20 12:55 Review of Systems ROS Statement: Those systems with pertinent positive or pertinent negative responses have been documented in the HPI. ROS Other: All systems not noted in ROS Statement are negative. Past Medical History Past Medical History: Diabetes Mellitus, Hypertension Additional Past Medical History / Comment(s): Kidney stones. History of Any Multi-Drug Resistant Organisms: None Reported Past Surgical History: Orthopedic Surgery Additional Past Surgical History / Comment(s): para thyroid surgery, prostate surgery Past Anesthesia/Blood Transfusion Reactions: No Reported Reaction Past Psychological History: No Psychological Hx Reported Smoking Status: Never smoker Past Alcohol Use History: Occasional Past Drug Use History: None Reported - Past Family History Mother Family Medical History: Diabetes Mellitus Additional Family Medical History / Comment(s): at 70 Father Family Medical History: Cancer Additional Family Medical History / Comment(s): at 82 colon cancer Sister(s) Family Medical History: Cancer Additional Family Medical History / Comment(s): at 72 from skin cancer General Exam - General Exam Comments Initial Comments: GENERAL: Patient is well-developed and well-nourished. Patient is nontoxic and well- hydrated and is in mild distress. ENT: Neck is soft and supple. No significant lymphadenopathy is noted. Oropharynx is clear. Moist mucous membranes. Neck has full range of motion without crescencio citing any pain. EYES: The sclera were anicteric and conjunctiva were pink and moist. Extraocular movements were intact and pupils were equal round and reactive to light. Eyelids were unremarkable. PULMONARY: Unlabored respirations. Good breath sounds bilaterally. No audible rales rhonchi or wheezing was noted. CARDIOVASCULAR: There is a regular rate and rhythm without any murmurs gallops or rubs. ABDOMEN: Soft and nontender with normal bowel sounds. SKIN: Skin is clear with no lesions or rashes and otherwise unremarkable. NEUROLOGIC: Patient is alert and oriented x3. Cranial nerves II through XII are grossly intact. Motor and sensory are also intact. Normal speech, volume and content. Symmetrical smile. MUSCULOSKELETAL: Normal extremities with adequate strength and full range of motion. No lower extremity swelling or edema. No calf tenderness. LYMPHATICS: No significant lymphadenopathy is noted PSYCHIATRIC: Normal psychiatric evaluation. Limitations: no limitations Course Vital Signs 02/16/20 12:12 Temperature 100.4 F H Pulse Rate 71 Respiratory 18 Rate Blood Pressure 156/88 O2 Sat by Pulse 99 Oximetry Medical Decision Making - Medical Decision Making EKG shows sinus rhythm at 72 bpm IA interval is 214 QRS 104 QT interval is 452 QTC is 494. Patient's EKG shows no ST segment elevation or depression. Chest x-ray shows bilateral multifocal infiltrates. This is consistent with COVID. [facility] the patient admitted the patient wrote admitting orders I started the patient on steroids and consult the pulmonary - Lab Data Result diagrams: 02/16/20 12:54 02/16/20 12:54 Lab Results 02/16/20 02/16/20 02/16/20 Range/Units 12:54 12:54 12:54 WBC 2.3 L (3.8-10.6) k/uL RBC 3.62 L (4.30-5.90) m/uL Hgb 10.6 L (13.0-17.5) gm/dL Hct 31.3 L (39.0-53.0) % MCV 86.7 (80.0-100.0) fL MCH 29.4 (25.0-35.0) pg MCHC 33.9 (31.0-37.0) g/dL RDW 15.1 (11.5-15.5) % Plt Count 170 (150-450) k/uL MPV 6.9 Neutrophils % 74 % Lymphocytes % 15 % Monocytes % 7 % Eosinophils % 1 % Basophils % 1 % Neutrophils # 1.7 (1.3-7.7) k/uL Lymphocytes # 0.3 L (1.0-4.8) k/uL Monocytes # 0.2 (0-1.0) k/uL Eosinophils # 0.0 (0-0.7) k/uL Basophils # 0.0 (0-0.2) k/uL Poikilocytosis Slight PT 9.9 (9.0-12.0) sec INR 0.9 (<1.2) APTT 28.2 (22.0-30.0) sec Sodium 138 (137-145) mmol/L Potassium 4.4 (3.5-5.1) mmol/L Chloride 107 (98-107) mmol/L Carbon Dioxide 23 (22-30) mmol/L Anion Gap 8 mmol/L BUN 22 H (9-20) mg/dL Creatinine 1.28 H (0.66-1.25) mg/dL Est GFR (CKD-EPI)AfAm 63 (>60 ml/min/1.73 sqM) Est GFR (CKD-EPI)NonAf 54 (>60 ml/min/1.73 sqM) Glucose 94 (74-99) mg/dL Plasma Lactic Acid Onel (0.7-2.0) mmol/L Calcium 7.2 L (8.4-10.2) mg/dL Magnesium 2.1 (1.6-2.3) mg/dL Total Bilirubin 1.0 (0.2-1.3) mg/dL AST 64 H (17-59) U/L ALT 44 (4-49) U/L Alkaline Phosphatase 106 (38-126) U/L Troponin I (0.000-0.034) ng/mL Total Protein 6.3 (6.3-8.2) g/dL Albumin 3.3 L (3.5-5.0) g/dL Urine Color Urine Appearance (Clear) Urine pH (5.0-8.0) Ur Specific Emerson (1.001-1.035) Urine Protein (Negative) Urine Glucose (UA) (Negative) Urine Ketones (Negative) Urine Blood (Negative) Urine Nitrite (Negative) Urine Bilirubin (Negative) Urine Urobilinogen (<2.0) mg/dL Ur Leukocyte Esterase (Negative) Urine RBC (0-5) /hpf Urine WBC (0-5) /hpf Urine Mucus (None) /hpf 02/16/20 02/16/20 02/16/20 Range/Units 12:54 12:54 12:58 WBC (3.8-10.6) k/uL RBC (4.30-5.90) m/uL Hgb (13.0-17.5) gm/dL Hct (39.0-53.0) % MCV (80.0-100.0) fL MCH (25.0-35.0) pg MCHC (31.0-37.0) g/dL RDW (11.5-15.5) % Plt Count (150-450) k/uL MPV Neutrophils % % Lymphocytes % % Monocytes % % Eosinophils % % Basophils % % Neutrophils # (1.3-7.7) k/uL Lymphocytes # (1.0-4.8) k/uL Monocytes # (0-1.0) k/uL Eosinophils # (0-0.7) k/uL Basophils # (0-0.2) k/uL Poikilocytosis PT (9.0-12.0) sec INR (<1.2) APTT (22.0-30.0) sec Sodium (137-145) mmol/L Potassium (3.5-5.1) mmol/L Chloride (98-107) mmol/L Carbon Dioxide (22-30) mmol/L Anion Gap mmol/L BUN (9-20) mg/dL Creatinine (0.66-1.25) mg/dL Est GFR (CKD-EPI)AfAm (>60 ml/min/1.73 sqM) Est GFR (CKD-EPI)NonAf (>60 ml/min/1.73 sqM) Glucose (74-99) mg/dL Plasma Lactic Acid Onel 0.9 (0.7-2.0) mmol/L Calcium (8.4-10.2) mg/dL Magnesium (1.6-2.3) mg/dL Total Bilirubin (0.2-1.3) mg/dL AST (17-59) U/L ALT (4-49) U/L Alkaline Phosphatase (38-126) U/L Troponin I 0.015 (0.000-0.034) ng/mL Total Protein (6.3-8.2) g/dL Albumin (3.5-5.0) g/dL Urine Color Yellow Urine Appearance Clear (Clear) Urine pH 7.0 (5.0-8.0) Ur Specific Emerson 1.017 (1.001-1.035) Urine Protein 2+ H (Negative) Urine Glucose (UA) Negative (Negative) Urine Ketones Negative (Negative) Urine Blood Trace H (Negative) Urine Nitrite Negative (Negative) Urine Bilirubin Negative (Negative) Urine Urobilinogen 12.0 (<2.0) mg/dL Ur Leukocyte Esterase Negative (Negative) Urine RBC 6 H (0-5) /hpf Urine WBC 1 (0-5) /hpf Urine Mucus Rare H (None) /hpf Disposition Clinical Impression: Pneumonia due to COVID-19 virus Disposition: ADMITTED IP TO THIS [facility] Referrals: Ewa Young MD [Primary Care Provider] - 1-2 days Time of Disposition: 14:14
[2020-02-16 13:06] LABS: Basophils % (A) 1 %; Eosinophils % (A) 1 %; HCT 31.3 % (39.0-53.0); HGB 10.6 gm/dL (13.0-17.5); Lymphocytes # (A) 0.3 k/uL (1.0-4.8); Lymphocytes % (A) 15 %; MCH 29.4 pg (25.0-35.0); MCHC 33.9 g/dL (31.0-37.0); MCV 86.7 fL (80.0-100.0); Mean Platelet Volume 6.9; Monocytes # (A) 0.2 k/uL (0-1.0); Monocytes % (A) 7 %; Neutrophils # (A) 1.7 k/uL (1.3-7.7); Neutrophils % (A) 74 %; Platelet Count 170 k/uL (150-450); Poikilocytosis Slight; RBC 3.62 m/uL (4.30-5.90); RDW 15.1 % (11.5-15.5); WBC 2.3 k/uL (3.8-10.6)
[2020-02-16 13:10] LABS: Appearance,Urine Clear (Clear); Bilirubin,Urine Negative (Negative); Blood,Urine Trace (Negative); Color,Urine Yellow; Glucose,Urine (UA) Negative (Negative); Ketones,Urine Negative (Negative); Leukocyte Esterase,Urine Negative (Negative); Mucus,Urine Rare /hpf; Nitrite,Urine Negative (Negative); Protein,Urine 2+ (Negative); RBC,Urine 6 /hpf (0-5); Specific Gravity,Urine 1.017 (1.001-1.035); WBC,Urine 1 /hpf (0-5)
[2020-02-16 13:14] LABS: Albumin 3.3 g/dL (3.5-5.0); Calcium 7.2 mg/dL (8.4-10.2); Magnesium 2.1 mg/dL (1.6-2.3); Potassium 4.4 mmol/L (3.5-5.1); Total Protein 6.3 g/dL (6.3-8.2)
[2020-02-16 13:29] LABS: INR 0.9 (<1.2); Partial Thromboplastin Time 28.2 sec (22.0-30.0); Prothrombin Time 9.9 sec (9.0-12.0)
--- NOTE | 2020-02-16 13:55 | XR ---
EXAMINATION TYPE: XR chest 2V DATE OF EXAM: 02/16/2020 COMPARISON: Chest x-ray January 18, 2020 HISTORY: Weakness and fever. Covid positive. TECHNIQUE: Frontal and lateral views of the chest are obtained. FINDINGS: There is chronic parenchymal change bilaterally with new peripheral multifocal opacities. Persistent cardiomegaly with atherosclerotic and ectatic thoracic aorta. Stable right and left paratr acheal soft tissue thickening is nonspecific. The osseous structures are intact. IMPRESSION: New bilateral multifocal predominantly peripheral acute infiltrates on background cardio megaly and chronic changes consistent with covid 19 infection.
[2020-02-16] MEDS ORDERED: ACETAMINOPHEN TAB 500 MG TAB PO STA (14:04)
[2020-02-16] MEDS ORDERED: dexAMETHasone 2 MG TAB PO STA (14:12)
[2020-02-16] MEDS ORDERED: SODIUM CHLORIDE 0.9% 1,000 ML IV ONE (14:15)
[2020-02-16] MEDS ORDERED: LORazepam 2 MG/ML INJ IV STA (15:02)
[2020-02-16] MEDS ORDERED: bisacodyL 10 MG SUPP RECTAL PRN (16:22)
[2020-02-16] MEDS ORDERED: MAGNESIUM HYDROXIDE 2,400 MG/10 ML CUP PO PRN (16:22)
[2020-02-16] MEDS ORDERED: LORazepam 0.5 MG TAB PO PRN ×2 (16:22)
[2020-02-16] MEDS ORDERED: traMADol 50 MG TAB PO PRN (16:22)
[2020-02-16] MEDS ORDERED: NA PHOS,M-B/NA PHOS,DI-BA 133 ML ENEMA RECTAL PRN (16:22)
[2020-02-16 16:25] LABS: Glucose,Whole Blood 114 mg/dL (75-99)
--- NOTE | 2020-02-16 16:27 | P.CNPUL ---
History of Present Illness Consult date: 02/16/20 Chief complaint: Weakness, altered mental status, diarrhea, and dehydration History of present illness: 74-year-old white male patient who was at the [facility] on the [place] following his surgery on the right foot, contracted the COVID 19 virus a week ago. Since that time patient has had the diarrhea, he did have an episode of vomiting today, he' s been feeling extremely weak, dehydrated, unable to get up and around. His right foot remains in the hard cast. He denied any fever or chills, he is lethargic, he is resting on the gurney in the emergency department, he is able to answer simple questions, but for the most part he is a poor historian. Medical history is that of hypertension, diabetes mellitus, lifetime nonsmoker, parathyroid surgery prostate surgery. Patient was febrile on presentation with a temp of 100.4F. Chest x-ray showed bilateral multifocal infiltrates consistent with COVID 19. His lab work showed a leukopenia with white blood cell count of 2.3, hemoglobin of 10.6, lymphopenia with lymphocyte, 0.3, electrolytes were within normal limits, BUN was 22 creatinine is 1.28, lactic acid was 0.9, AST was 64, ALT and alkaline phosphatase were within normal limits, troponin was 0.015, urinalysis showed 2+ protein, trace blood no clear evidence of infection. He is on room air, with a pulse ox of 99%, blood pressure is 154/93, he is in sinus mechanism on the monitor, [place] any shortness of breath, seeing IV fluids with 0.9 normal saline at a rate of 75 ML per hour, he received a liter fluid bolus, dexamethasone was started in the emergency department Review of Systems All systems: negative Constitutional: Denies chills, Denies fever Eyes: denies blurred vision, denies pain Ears, nose, mouth and throat: Denies headache, Denies sore throat Cardiovascular: Denies chest pain, Denies shortness of breath Respiratory: Denies cough Gastrointestinal: Reports diarrhea, Reports vomiting, Denies abdominal pain, Denies nausea Musculoskeletal: Denies myalgias Integumentary: Denies pruritus, Denies rash Neurological: Reports change in mentation, Denies numbness, Denies weakness Psychiatric: Denies anxiety, Denies depression Endocrine: Denies fatigue, Denies weight change Past Medical History Past Medical History: Diabetes Mellitus, Hypertension Additional Past Medical History / Comment(s): Kidney stones. History of Any Multi-Drug Resistant Organisms: None Reported Past Surgical History: Orthopedic Surgery Additional Past Surgical History / Comment(s): para thyroid surgery, prostate surgery Past Anesthesia/Blood Transfusion Reactions: No Reported Reaction Past Psychological History: No Psychological Hx Reported Smoking Status: Never smoker Past Alcohol Use History: Occasional Past Drug Use History: None Reported - Past Family History Mother Family Medical History: Diabetes Mellitus Additional Family Medical History / Comment(s): at 70 Father Family Medical History: Cancer Additional Family Medical History / Comment(s): at 82 colon cancer Sister(s) Family Medical History: Cancer Additional Family Medical History / Comment(s): at 72 from skin cancer Medications and Allergies Home Medications Medication Instructions Recorded Confirmed Type Insulin Detemir [Levemir Flextouch] 20 units SQ HS@2100 01/18/20 02/16/20 History Sertraline [Zoloft] 100 mg PO DAILY 01/18/20 02/16/20 History metFORMIN HCL 250 mg PO DAILY@0800 01/18/20 02/16/20 History Acetaminophen Tab [Tylenol] 975 mg PO TID@0600,1400,2200 01/26/20 02/16/20 History Atorvastatin Calcium [Lipitor] 20 mg PO HS@2100 01/26/20 02/16/20 History Enoxaparin Sodium [Lovenox] 30 mg SQ BID 01/26/20 02/16/20 History Ferrous Sulfate [Iron] 325 mg PO BID 01/26/20 02/16/20 History Magnesium Hydroxide [Milk of 2,400 mg PO DAILY PRN 01/26/20 02/16/20 History Magnesia] Na Phos,M-B/Na Phos,Di-Ba [Fleet 133 ml RECTAL DAILY PRN 01/26/20 02/16/20 History Adult] Polyethylene Glycol 3350 [Miralax] 17 gm PO DAILY 01/26/20 02/16/20 History Tamsulosin HCl [Flomax] 0.4 mg PO DAILY 01/26/20 02/16/20 History amLODIPine BESYLATE 5 mg PO DAILY 01/26/20 02/16/20 History bisacodyL [Dulcolax] 10 mg RECTAL DAILY PRN 01/26/20 02/16/20 History glipiZIDE [Glucotrol] 2.5 mg PO DAILY@0800 01/26/20 02/16/20 History methocarbamoL [Robaxin] 500 mg PO TID@0600,1400,2200 01/26/20 02/16/20 History traMADol HCl [Ultram] 50 mg PO Q6H PRN #12 tab 01/29/20 02/16/20 Rx INSULIN ASPART (NovoLOG) [NovoLOG See Protocol SQ AC-TID 02/16/20 02/16/20 History (formulary)] LORazepam [Ativan] 0.25 mg PO BID@0900,1700 02/16/20 02/16/20 History LORazepam [Ativan] 0.5 mg PO HS 02/16/20 02/16/20 History Allergies Allergy/AdvReac Type Severity Reaction Status Date / Time No Known Allergies Allergy Verified 02/16/20 12:55 Physical Exam Vitals: Vital Signs Temp Pulse Resp BP Pulse Ox 02/16/20 14:53 79 19 154/93 99 02/16/20 12:12 100.4 F H 71 18 156/88 99 Intake and Output 02/16/20 02/16/20 02/16/20 06:59 14:59 22:59 Other: Weight 76.657 kg GENERAL EXAM: Lethargic, arousable, 74-year-old white male, resting in the gurney in the emergency department, on room air, with pulse ox of 99%, able to answer simple questions, but patient is drowsy, and somewhat altered, but appears to be comfortable in no apparent distress. HEAD: Normocephalic/atraumatic. EYES: Normal reaction of pupils, equal size. Conjunctiva pink, sclera white. NOSE: Clear with pink turbinates. THROAT: No erythema or exudates. NECK: No masses, no JVD, no thyroid enlargement, no adenopathy. CHEST: No chest wall deformity. Symmetrical expansion. LUNGS: Equal air entry with no crackles, wheeze, rhonchi or dullness. CVS: Regular rate and rhythm, normal S1 and S2, no gallops, no murmurs, no rubs ABDOMEN: Soft, nontender. No hepatosplenomegaly, normal bowel sounds, no guarding or rigidity. EXTREMITIES: No clubbing, no edema, no cyanosis, 2+ pulses and upper and lower extremities. MUSCULOSKELETAL: Muscle strength and tone normal. Right foot with a heart cath in place SPINE: No scoliosis or deformity SKIN: No rashes CENTRAL NERVOUS SYSTEM: Confused and oriented -1. No focal deficits, tone is normal in all 4 extremities. Results - Laboratory Findings CBC and BMP: 02/16/20 12:54 12 12:54 PT/INR, D-dimer PT 9.9 sec (9.0-12.0) 02/16/20 12:54 INR 0.9 (<1.2) 02/16/20 12:54 Abnormal lab findings: Abnormal Labs 02/16/20 02/16/20 12 12:54 12:54 12:58 WBC 2.3 L RBC 3.62 L Hgb 10.6 L Hct 31.3 L Lymphocytes # 0.3 L BUN 22 H Creatinine 1.28 H Calcium 7.2 L AST 64 H Albumin 3.3 L Urine Protein 2+ H Urine Blood Trace H Urine RBC 6 H Urine Mucus Rare H - Diagnostic Findings Chest x-ray: report reviewed, image reviewed Additional studies: Sinus rhythm and EKG Assessment and Plan Plan: Assessment: #1. Weakness, dehydration, diarrhea related to 19 infection #2. Bilateral pulmonary infiltrates predominantly in peripheral areas consistent with COVID19 infection #3. Leukopenia #4. Lymphopenia related to COVID 19 infection #5. Acute kidney injury related to dehydration #6. Recent hospitalization for fecal stasis, with symptoms of nausea vomiting related to narcotics #7. Recent injury to both ankles and vertebra secondary to a fall from a ladder, she still has a hard cast on the right foot and is currently undergoing rehab #8. Recent history of urinary tract infection with cystitis #9. Hypertension #10. BPH #11. Diabetes mellitus type 2 #12. Hypertension Plan: Continue IV hydration, chest x-ray has been reviewed showing bilateral pulmonary infiltrates, however patient denies any acute respiratory distress, he is on room air, breathing comfortably, we'll continue supportive treatment at this time, and GI and DVT prophylaxis, patient continues on oral dexamethasone, will obtain d-dimer, will obtain pro-calcitonin, follow-up blood work in the morning I performed a history & physical examination of the patient and discussed their management with my nurse practitioner, Leanne Leyva. I reviewed the nurse practitioner's note and agree with the documented findings and plan of care. Lung sounds are positive for diminished breath sounds. The findings and the impression was discussed with the patient. I attest to the documentation by the nurse practitioner. Time with Patient: Greater than 30
[2020-02-16] MEDS ORDERED: HALOPERIDOL LACTATE 5 MG/ML 1 ML VIAL IM PRN (16:48)
[2020-02-16] MEDS ORDERED: HALOPERIDOL LACTATE 5 MG/ML 1 ML VIAL IVP ONE (17:00)
[2020-02-16] MEDS ORDERED: HALOPERIDOL LACTATE 5 MG/ML 1 ML VIAL IVP PRN (17:14)
--- NOTE | 2020-02-16 17:22 | P.HPIM ---
History of Present Illness 74-year-old the male came in because of generalized weakness tiredness a. To be dehydrated patient does have acute renal failure. Patient is a recently diagnosed with Covid when he was [facility]. Patient was bit agitated because of which patient was given Ativan as of which patient is quite slow during the interview and the patient agitation has gotten worse. Patient does have temperature of 100.4 chest x-ray showing bilateral multifocal infiltrates and patient is presently on Decadron. Neurology was consulted. Patient is s aturating 99% on room air. Patient had a recent foot surgery after which she was discharged to [facility]. Troponin is minimally elevated. Patient denied any chest pain. Patient received 1 L of bolus after which patient was started on IV fluids. Patient to was having nausea unable to tolerate any diet. Patient does have a Marsh catheter as well which appeared to be chronic Marsh Review of Systems REVIEW OF SYSTEMS: CONSTITUTIONAL: As mentioned in HPI HEENT: No recent visual problems or hearing problems. Denied any sore throat. CARDIOVASCULAR: No chest pain, orthopnea, PND, no palpitations, no syncope. PULMONARY: No shortness of breath, no cough, no hemoptysis. GASTROINTESTINAL: No diarrhea, no vomiting, no abdominal pain. NEUROLOGICAL: No headaches, no weakness, no numbness. HEMATOLOGICAL: Denies any bleeding or petechiae. GENITOURINARY: Denies any burning micturition, frequency, or urgency. MUSCULOSKELETAL/RHEUMATOLOGICAL: Denies any joint pain, swelling, or any muscle pain. ENDOCRINE: Denies any polyuria or polydipsia. The rest of the 14-point review of systems is negative. Past Medical History Past Medical History: Diabetes Mellitus, Hypertension Additional Past Medical History / Comment(s): Kidney stones. History of Any Multi-Drug Resistant Organisms: None Reported Past Surgical History: Orthopedic Surgery Additional Past Surgical History / Comment(s): para thyroid surgery, prostate surgery Past Anesthesia/Blood Transfusion Reactions: No Reported Reaction Past Psychological History: No Psychological Hx Reported Smoking Status: Never smoker Past Alcohol Use History: Occasional Past Drug Use History: None Reported - Past Family History Mother Family Medical History: Diabetes Mellitus Additional Family Medical History / Comment(s): at 70 Father Family Medical History: Cancer Additional Family Medical History / Comment(s): at 82 colon cancer Sister(s) Family Medical History: Cancer Additional Family Medical History / Comment(s): at 72 from skin cancer Medications and Allergies Home Medications Medication Instructions Recorded Confirmed Type Insulin Detemir [Levemir Flextouch] 20 units SQ HS@2100 01/18/20 02/16/20 History Sertraline [Zoloft] 100 mg PO DAILY 01/18/20 02/16/20 History metFORMIN HCL 250 mg PO DAILY@0800 01/18/20 02/16/20 History Acetaminophen Tab [Tylenol] 975 mg PO TID@0600,1400,2200 01/26/20 02/16/20 History Atorvastatin Calcium [Lipitor] 20 mg PO HS@2100 01/26/20 02/16/20 History Enoxaparin Sodium [Lovenox] 30 mg SQ BID 01/26/20 02/16/20 History Ferrous Sulfate [Iron] 325 mg PO BID 01/26/20 02/16/20 History Magnesium Hydroxide [Milk of 2,400 mg PO DAILY PRN 01/26/20 02/16/20 History Magnesia] Na Phos,M-B/Na Phos,Di-Ba [Fleet 133 ml RECTAL DAILY PRN 01/26/20 02/16/20 History Adult] Polyethylene Glycol 3350 [Miralax] 17 gm PO DAILY 01/26/20 02/16/20 History Tamsulosin HCl [Flomax] 0.4 mg PO DAILY 01/26/20 02/16/20 History amLODIPine BESYLATE 5 mg PO DAILY 01/26/20 02/16/20 History bisacodyL [Dulcolax] 10 mg RECTAL DAILY PRN 01/26/20 02/16/20 History glipiZIDE [Glucotrol] 2.5 mg PO DAILY@0800 01/26/20 02/16/20 History methocarbamoL [Robaxin] 500 mg PO TID@0600,1400,2200 01/26/20 02/16/20 History traMADol HCl [Ultram] 50 mg PO Q6H PRN #12 tab 01/29/20 02/16/20 Rx INSULIN ASPART (NovoLOG) [NovoLOG See Protocol SQ AC-TID 02/16/20 02/16/20 History (formulary)] LORazepam [Ativan] 0.25 mg PO BID@0900,1700 02/16/20 02/16/20 History LORazepam [Ativan] 0.5 mg PO HS 02/16/20 02/16/20 History Allergies Allergy/AdvReac Type Severity Reaction Status Date / Time No Known Allergies Allergy Verified 02/16/20 12:55 Physical Exam Vitals: Vital Signs Temp Pulse Resp BP Pulse Ox 02/16/20 14:53 79 19 154/93 99 02/16/20 12:12 100.4 F H 71 18 156/88 99 Intake and Output 02/16/20 02/16/20 02/16/20 06:59 14:59 22:59 Other: Weight 76.657 kg PHYSICAL EXAMINATION: GENERAL: The patient is alert and oriented but quite slow probably because of Ativan he received., not in any acute distress. Well developed, well nourished. HEENT: Pupils are round and equally reacting to light. EOMI. No scleral icterus. No conjunctival pallor. Normocephalic, atraumatic. No pharyngeal erythema. No thyromegaly. CARDIOVASCULAR: S1 and S2 present. No murmurs, rubs, or gallops. PULMONARY: Chest is clear to auscultation, no wheezing or crackles. ABDOMEN: Soft, nontender, nondistended, normoactive bowel sounds. No palpable organomegaly. MUSCULOSKELETAL: No joint swelling or deformity. EXTREMITIES: No cyanosis, clubbing, or pedal edema. NEUROLOGICAL: Gross neurological examination did not reveal any focal deficits. SKIN: No rashes. Results CBC & Chem 7: 02/16/20 12:54 02/16/20 12:54 Labs: Abnormal Lab Results - Last 24 Hours (Table) 02/16/20 02/16/20 02/16/20 Range/Units 12:54 12:54 12:54 WBC 2.3 L (3.8-10.6) k/uL RBC 3.62 L (4.30-5.90) m/uL Hgb 10.6 L (13.0-17.5) gm/dL Hct 31.3 L (39.0-53.0) % Lymphocytes # 0.3 L (1.0-4.8) k/uL D-Dimer 1.81 H (<0.60) mg/L FEU BUN 22 H (9-20) mg/dL Creatinine 1.28 H (0.66-1.25) mg/dL POC Glucose (mg/dL) (75-99) mg/dL Calcium 7.2 L (8.4-10.2) mg/dL AST 64 H (17-59) U/L Albumin 3.3 L (3.5-5.0) g/dL Urine Protein (Negative) Urine Blood (Negative) Urine RBC (0-5) /hpf Urine Mucus (None) /hpf 02/16/20 02/16/20 Range/Units 12:58 16:24 WBC (3.8-10.6) k/uL RBC (4.30-5.90) m/uL Hgb (13.0-17.5) gm/dL Hct (39.0-53.0) % Lymphocytes # (1.0-4.8) k/uL D-Dimer (<0.60) mg/L FEU BUN (9-20) mg/dL Creatinine (0.66-1.25) mg/dL POC Glucose (mg/dL) 114 H (75-99) mg/dL Calcium (8.4-10.2) mg/dL AST (17-59) U/L Albumin (3.5-5.0) g/dL Urine Protein 2+ H (Negative) Urine Blood Trace H (Negative) Urine RBC 6 H (0-5) /hpf Urine Mucus Rare H (None) /hpf Assessment and Plan Plan: -Generalized weakness, nausea, diarrhea dehydration: Secondary to covid 19 infection. -Covid 19 pneumonia with bilateral pulmonary infiltrates, patient was started on Decadron -Acute renal failure secondary to dehydration and poor by mouth intake patient will be started on IV fluids -Altered mental status and toxic encephalopathy related to medications and infection as mentioned above -Recent fall with a fracture and a cast to the right foot physical therapy and occupational therapy will be consulted -Hypertension -Benign prostatic hypertrophy with a chronic Marsh cath -Type 2 diabetes mellitus -Hypertension -DVT prophylaxis with Lovenox constraining of poor renal function monitored closely monitored for any bleed. GI prophylaxis Protonix
[2020-02-16] MEDS: SODIUM CHLORIDE 0.9% 1,000 ML IV SCH (18:00)
[2020-02-16] MEDS: INSULIN ASPART (NovoLOG) 100 UNIT/ML VIAL SQ SCH ×2 (21:25→22:36)
[2020-02-16 22:17] LABS: Glucose,Whole Blood 197 mg/dL (75-99)
[2020-02-16] MEDS: PANTOPRAZOLE 40 MG/10 ML VIAL IVP SCH (22:36)
[2020-02-16] MEDS: ATORVASTATIN 20 MG TAB PO SCH (22:37)
[2020-02-16] MEDS: INSULIN DETEMIR (LEVEMIR) 100 UNIT/ML SYR SQ SCH (22:37)
[2020-02-16] MEDS: FERROUS SULFATE 325 MG TAB PO SCH (22:37)
[2020-02-16] MEDS: ENOXAPARIN 30 MG/0.3 ML SYRINGE SQ SCH (22:38)
[2020-02-16] MEDS: ACETAMINOPHEN TAB 325 MG TAB PO SCH (22:38)
[2020-02-16] MEDS: QUEtiapine 25 MG TAB PO PRN (22:38)
[2020-02-16] MEDS: methocarbamoL 500 MG TAB PO SCH (23:02)
[2020-02-17 06:16] LABS: HCT 27.4 % (39.0-53.0); HGB 9.2 gm/dL (13.0-17.5); Hypochromasia Slight; MCH 29.7 pg (25.0-35.0); MCHC 33.7 g/dL (31.0-37.0); Mean Platelet Volume 7.1; Platelet Count 154 k/uL (150-450); Poikilocytosis Slight; RBC 3.11 m/uL (4.30-5.90); RDW 14.8 % (11.5-15.5); WBC 2.2 k/uL (3.8-10.6)
[2020-02-17] MEDS: methocarbamoL 500 MG TAB PO SCH ×3 (07:04→20:31)
[2020-02-17] MEDS: SODIUM CHLORIDE 0.9% 1,000 ML IV SCH ×2 (07:04→12:17)
[2020-02-17] MEDS: ACETAMINOPHEN TAB 325 MG TAB PO SCH ×3 (07:04→23:02)
[2020-02-17] MEDS ORDERED: metFORMIN 500 MG TAB PO SCH (08:00)
[2020-02-17 08:17] LABS: Glucose,Whole Blood 92 mg/dL (75-99)
[2020-02-17] MEDS: INSULIN ASPART (NovoLOG) 100 UNIT/ML VIAL SQ SCH ×4 (08:31→20:50)
[2020-02-17] MEDS: PANTOPRAZOLE 40 MG/10 ML VIAL IVP SCH (08:41)
[2020-02-17] MEDS: TAMSULOSIN 0.4 MG CAP.ER.24H PO SCH (08:42)
[2020-02-17] MEDS: ENOXAPARIN 30 MG/0.3 ML SYRINGE SQ SCH ×2 (08:42→20:32)
[2020-02-17] MEDS: FERROUS SULFATE 325 MG TAB PO SCH ×2 (08:42→20:32)
[2020-02-17] MEDS: polyethylene glycoL 3350 17 GM POWD.PACK PO SCH (08:42)
[2020-02-17] MEDS: SERTRALINE 100 MG TAB PO SCH (08:44)
[2020-02-17] MEDS: dexAMETHasone 2 MG TAB PO SCH (08:44)
[2020-02-17] MEDS: amLODIPine 5 MG TAB PO SCH (08:44)
[2020-02-17 09:44] LABS: African American GFR (CKD) 68.1 (60.0-200.0); Albumin 3.3 g/dL (3.80-4.90); Albumin/Globulin Ratio 1.65 (1.60-3.17); Anion Gap 6.5 mmol/L (4.00-12.00); Calcium 7.2 mg/dL (8.7-10.3); Carbon Dioxide 22.5 mmol/L (21.6-31.8); Non-African American GFR(CKD) 58.8 (60.0-200.0); Potassium 4.7 mmol/L (3.5-5.5); Total Bilirubin 0.6 mg/dL (0.2-1.2); Total Protein 5.3 g/dL (6.2-8.2)
[2020-02-17 11:46] LABS: Glucose,Whole Blood 156 mg/dL (75-99)
--- NOTE | 2020-02-17 15:26 | P.PN ---
Subjective 74-year-old the male came in because of generalized weakness tiredness a. To be dehydrated patient does have acute renal failure. Patient is a recently diagnosed with Covid when he was [facility]. Patient was bit agitated because of which patient was given Ativan as of which patient is quite slow during the interview and the patient agitation has gotten worse. Patient does have temperature of 100.4 chest x-ray showing bilateral multifocal infiltrates and patient is presently on Decadron. Neurology was consulted. Patient is saturating 99% on room air. Patient had a recent foot surgery after which she was discharged to [facility]. Troponin is minimally elevated. Patient denied any chest pain. Patient received 1 L of bolus after which patient was started on IV fluids. Patient to was having nausea unable to tolerate any diet. Patient does have a Marsh catheter as well which appeared to be chronic Marsh. 02/17/2020 Patient is still having pain in the right leg. Physical therapy and outpatient therapy will evaluate the patient patient will continued on IV fluids as well as minimal improvement in her serum sodium. All the respiratory events patient is doing okay presently on 2 L of oxygen which we will try to wean off. Possib ility of discharge tomorrow but patient may need to go back to rehab again. Overall looks much better today Constitutional: Denied any fatigue denied any fever. Cardio vascular: denied any chest pain, palpitations Gastrointestinal denied any nausea vomiting Pulmonary: Denied any shortness of breath cough Neurologic denied any new focal deficits All inpatient medications were reviewed and appropriate changes in these medications as dictated in the interval history and assessment and plan. Objective - Vital Signs Vital signs: Vital Signs Temp 97.6 F 02/17/20 14:00 Pulse 54 L 02/17/20 14:00 Resp 20 02/17/20 14:00 BP 170/85 02/17/20 14:00 Pulse Ox 98 02/17/20 14:00 Intake & Output 02/16/20 02/17/20 02/17/20 18:59 06:59 18:59 Output Total 800 Balance -800 Weight 76.657 kg 76.657 kg Output: Urine 800 Other: Voiding Method Indwelling Catheter - Exam PHYSICAL EXAMINATION: GENERAL: The patient is alert and oriented but quite slow probably because of Ativan he received., not in any acute distress. Well developed, well nourished. HEENT: Pupils are round and equally reacting to light. EOMI. No scleral icterus. No conjunctival pallor. Normocephalic, atraumatic. No pharyngeal erythema. No thyromegaly. CARDIOVASCULAR: S1 and S2 present. No murmurs, rubs, or gallops. PULMONARY: Chest is clear to auscultation, no wheezing or crackles. ABDOMEN: Soft, nontender, nondistended, normoactive bowel sounds. No palpable organomegaly. MUSCULOSKELETAL: Patient has a cast to the right leg EXTREMITIES: No cyanosis, clubbing, or pedal edema. NEUROLOGICAL: Gross neurological examination did not reveal any focal deficits. SKIN: No rashes. - Labs CBC & Chem 7: 02/17/20 05:34 02/17/20 05:34 Labs: Abnormal Lab Results - Last 24 Hours (Table) 02/16/20 02/16/20 02/16/20 Range/Units 12:54 12:54 16:24 WBC (3.8-10.6) k/uL RBC (4.30-5.90) m/uL Hgb (13.0-17.5) gm/dL Hct (39.0-53.0) % D-Dimer 1.81 H (<0.60) mg/L FEU Chloride (96-109) mmol/L Est GFR (CKD-EPI)NonAf (60.0-200.0) Glucose (70-110) mg/dL POC Glucose (mg/dL) 114 H (75-99) mg/dL Calcium (8.7-10.3) mg/dL AST (14-35) U/L Total Protein (6.2-8.2) g/dL Albumin (3.80-4.90) g/dL Procalcitonin 0.12 H (0.02-0.09) ng/mL 02/16/20 02/17/20 02/17/20 Range/Units 22:16 05:34 05:34 WBC 2.2 L (3.8-10.6) k/uL RBC 3.11 L (4.30-5.90) m/uL Hgb 9.2 L (13.0-17.5) gm/dL Hct 27.4 L (39.0-53.0) % D-Dimer (<0.60) mg/L FEU Chloride 112 H (96-109) mmol/L Est GFR (CKD-EPI)NonAf 58.8 L (60.0-200.0) Glucose 112 H (70-110) mg/dL POC Glucose (mg/dL) 197 H (75-99) mg/dL Calcium 7.2 L (8.7-10.3) mg/dL AST 51 H (14-35) U/L Total Protein 5.3 L (6.2-8.2) g/dL Albumin 3.30 L (3.80-4.90) g/dL Procalcitonin (0.02-0.09) ng/mL 02/17/20 Range/Units 11:41 WBC (3.8-10.6) k/uL RBC (4.30-5.90) m/uL Hgb (13.0-17.5) gm/dL Hct (39.0-53.0) % D-Dimer (<0.60) mg/L FEU Chloride (96-109) mmol/L Est GFR (CKD-EPI)NonAf (60.0-200.0) Glucose (70-110) mg/dL POC Glucose (mg/dL) 156 H (75-99) mg/dL Calcium (8.7-10.3) mg/dL AST (14-35) U/L Total Protein (6.2-8.2) g/dL Albumin (3.80-4.90) g/dL Procalcitonin (0.02-0.09) ng/mL Assessment and Plan Plan: -Generalized weakness, nausea, diarrhea dehydration: Secondary to covid 19 infection. Improved at this time. Patient is tolerating diet well. -Covid 19 pneumonia with bilateral pulmonary infiltrates, patient was started on Decadron. Patient is presently on 2 L of oxygen. -Acute renal failure secondary to dehydration and poor by mouth intake patient will be started on IV fluids -Altered mental status and toxic encephalopathy related to medications and infection as mentioned above -Recent fall with a fracture and a cast to the right foot physical therapy and occupational therapy will let the patient. May need to go back to subacute rehabilitation again still having a lot of pain in the fracture site area -Hypertension -Benign prostatic hypertrophy with a chronic Marsh cath -Type 2 diabetes mellitus -Hypertension -DVT prophylaxis with Lovenox constraining of poor renal function monitored closely monitored for any bleed. GI prophylaxis Protonix
--- NOTE | 2020-02-17 15:39 | P.PN ---
<Leanne Leyva M - Last Filed: 02/17/20 15:34> Subjective Progress Note Date: 02/17/20 Principal diagnosis: COVID 19 infection, weakness, altered mental status, diarrhea 74-year-old white male patient who was at the [facility] on [facility] following his surgery on the right foot, contracted the COVID 19 virus a week ago. Since that time patient has had the diarrhea, he did have an episode of vomiting today, he's been feeling extremely weak, dehydrated, unable to get up and around. His right foot remains in the hard cast. He denied any fever or chills, he is lethargic, he is resting on the gurney in the emergency department, he is able to answer simple questions, but for the most part he is a poor historian. Medical history is that of hypertension, diabetes mellitus, lifetime nonsmoker, parathyroid surgery prostate surgery. Patient was febrile on presentation with a temp of 100.4F. Chest x-ray showed bilateral multifocal infiltrates consistent with COVID 19. His lab work showed a leukopenia with white blood cell count of 2.3, hemoglobin of 10.6, lymphopenia with lymphocyte, 0.3, electrolytes were within normal limits, BUN was 22 creatinine is 1.28, lactic acid was 0.9, AST was 64, ALT and alkaline phosphatase were within normal limits, troponin was 0.015, urinalysis showed 2+ protein, trace blood no clear evidence of infection. He is on room air, with a pulse ox of 99%, blood pressure is 154/93, he is in sinus mechanism on the monitor, [place] any shortness of breath, seeing IV fluids with 0.9 normal saline at a rate of 75 ML per hour, he received a liter fluid bolus, dexamethasone was started in the emergency department On the 2019 patient seen in follow-up in the emergency department, he still awaiting a bed on the floor, he is much more awake today, responsive, he is answering questions, he denies any shortness of breath, denies any nausea vomiting, no abdominal pain, or diarrhea, he is on 2 L of oxygen with pulse ox of 98%, vital signs have a stable, no fever or chills, he continues on IV hydration currently infusing at 100 ML per hour. His lab work has been reviewed, showing what little, 2.2, hemoglobin is 9.2, electrolytes are unremarkable, with the exception of chloride which is mildly elevated at 112, possibly from saline infusion, his a renal profile slightly improved, with creatinine down to 1.2, and BUN of 24, urinalysis did not show any evidence of infection, his pro-calcitonin level was low at 0.12, his vital signs have been stable, he denies any cough or congestion. Remains on oral Decadron, he is receiving anticoagulation with Lovenox 30 mg twice daily, Objective - Vital Signs Vital signs: Vital Signs Temp 97.6 F 02/17/20 14:00 Pulse 54 L 02/17/20 14:00 Resp 20 02/17/20 14:00 BP 170/85 02/17/20 14:00 Pulse Ox 98 02/17/20 14:00 Intake & Output 02/16/20 02/17/20 02/17/20 18:59 06:59 18:59 Output Total 800 Balance -800 Weight 76.657 kg 76.657 kg Output: Urine 800 Other: Voiding Method Indwelling Catheter - Exam GENERAL EXAM: Much more arousable, awake on today's exam, 74-year-old white male, resting in the gurney in the emergency department, on room air, with pulse ox of 99%, able to answer simple questions, but appears to be comfortable in no apparent distress. HEAD: Normocephalic/atraumatic. EYES: Normal reaction of pupils, equal size. Conjunctiva pink, sclera white. NOSE: Clear with pink turbinates. THROAT: No erythema or exudates. NECK: No masses, no JVD, no thyroid enlargement, no adenopathy. CHEST: No chest wall deformity. Symmetrical expansion. LUNGS: Equal air entry with no crackles, wheeze, rhonchi or dullness. CVS: Regular rate and rhythm, normal S1 and S2, no gallops, no murmurs, no rubs ABDOMEN: Soft, nontender. No hepatosplenomegaly, normal bowel sounds, no guarding or rigidity. EXTREMITIES: No clubbing, no edema, no cyanosis, 2+ pulses and upper and lower extremities. MUSCULOSKELETAL: Muscle strength and tone normal. Right foot with a heart cath in place SPINE: No scoliosis or deformity SKIN: No rashes CENTRAL NERVOUS SYSTEM: Confused and oriented -1. No focal deficits, tone is normal in all 4 extremities. - Labs CBC & Chem 7: 02/17/20 05:34 02/17/20 05:34 Labs: Abnormal Lab Results - Last 24 Hours (Table) 02/16/20 02/16/20 02/16/20 Range/Units 12:54 12:54 16:24 WBC (3.8-10.6) k/uL RBC (4.30-5.90) m/uL Hgb (13.0-17.5) gm/dL Hct (39.0-53.0) % D-Dimer 1.81 H (<0.60) mg/L FEU Chloride (96-109) mmol/L Est GFR (CKD-EPI)NonAf (60.0-200.0) Glucose (70-110) mg/dL POC Glucose (mg/dL) 114 H (75-99) mg/dL Calcium (8.7-10.3) mg/dL AST (14-35) U/L Total Protein (6.2-8.2) g/dL Albumin (3.80-4.90) g/dL Procalcitonin 0.12 H (0.02-0.09) ng/mL 02/16/20 02/17/20 02/17/20 Range/Units 22:16 05:34 05:34 WBC 2.2 L (3.8-10.6) k/uL RBC 3.11 L (4.30-5.90) m/uL Hgb 9.2 L (13.0-17.5) gm/dL Hct 27.4 L (39.0-53.0) % D-Dimer (<0.60) mg/L FEU Chloride 112 H (96-109) mmol/L Est GFR (CKD-EPI)NonAf 58.8 L (60.0-200.0) Glucose 112 H (70-110) mg/dL POC Glucose (mg/dL) 197 H (75-99) mg/dL Calcium 7.2 L (8.7-10.3) mg/dL AST 51 H (14-35) U/L Total Protein 5.3 L (6.2-8.2) g/dL Albumin 3.30 L (3.80-4.90) g/dL Procalcitonin (0.02-0.09) ng/mL 02/17/20 Range/Units 11:41 WBC (3.8-10.6) k/uL RBC (4.30-5.90) m/uL Hgb (13.0-17.5) gm/dL Hct (39.0-53.0) % D-Dimer (<0.60) mg/L FEU Chloride (96-109) mmol/L Est GFR (CKD-EPI)NonAf (60.0-200.0) Glucose (70-110) mg/dL POC Glucose (mg/dL) 156 H (75-99) mg/dL Calcium (8.7-10.3) mg/dL AST (14-35) U/L Total Protein (6.2-8.2) g/dL Albumin (3.80-4.90) g/dL Procalcitonin (0.02-0.09) ng/mL Assessment and Plan Plan: Assessment: #1. Weakness, dehydration, diarrhea related to 19 infection, improved #2. Bilateral pulmonary infiltrates predominantly in peripheral areas con sistent with COVID19 infection #3. Leukopenia #4. Lymphopenia related to COVID 19 infection #5. Acute kidney injury related to dehydration #6. Recent hospitalization for fecal stasis, with symptoms of nausea vomiting related to narcotics #7. Recent injury to both ankles and vertebra secondary to a fall from a ladder, she still has a hard cast on the right foot and is currently undergoing rehab #8. Recent history of urinary tract infection with cystitis #9. Hypertension #10. BPH #11. Diabetes mellitus type 2 #12. Hypertension Plan: Patient denies any pulmonary symptoms, no shortness of breath or cough, he remains on minimal supplemental oxygen, his vital signs have been stable overnight, continue with IV hydration, continue on Decadron and anticoagulation, we'll continue to monitor and continue supportive treatment, if remains stable may consider for discharge home in the next 24 hours I performed a history & physical examination of the patient and discussed their management with my nurse practitioner, Leanne Leyva. I reviewed the nurse practitioner's note and agree with the documented findings and plan of care. Lung sounds are positive for diminished breath sounds. The findings and the impression was discussed with the patient. I attest to the documentation by the nurse practitioner. Time with Patient: Less than 30 <Isidro Shultz - Last Filed: 02/17/20 19:05> Objective - Vital Signs Vital signs: Vital Signs Temp 98.2 F 02/17/20 17:00 Pulse 51 L 02/17/20 17:00 Resp 16 02/17/20 17:00 BP 172/82 02/17/20 17:00 Pulse Ox 98 02/17/20 17:00 Intake & Output 02/17/20 02/17/20 02/18/20 06:59 18:59 06:59 Intake Total 360 Output Total 800 Balance -440 Weight 76.657 kg Intake: Oral 360 Output: Urine 800 Other: Voiding Method Indwelling Catheter - Labs CBC & Chem 7: 02/17/20 05:34 02/17/20 05:34 Labs: Abnormal Lab Results - Last 24 Hours (Table) 02/16/20 02/16/20 02/17/20 Range/Units 12:54 22:16 05:34 WBC 2.2 L (3.8-10.6) k/uL RBC 3.11 L (4.30-5.90) m/uL Hgb 9.2 L (13.0-17.5) gm/dL Hct 27.4 L (39.0-53.0) % Chloride (96-109) mmol/L Est GFR (CKD-EPI)NonAf (60.0-200.0) Glucose (70-110) mg/dL POC Glucose (mg/dL) 197 H (75-99) mg/dL Calcium (8.7-10.3) mg/dL AST (14-35) U/L Total Protein (6.2-8.2) g/dL Albumin (3.80-4.90) g/dL Procalcitonin 0.12 H (0.02-0.09) ng/mL 02/17/20 02/17/20 02/17/20 Range/Units 05:34 11:41 17:08 WBC (3.8-10.6) k/uL RBC (4.30-5.90) m/uL Hgb (13.0-17.5) gm/dL Hct (39.0-53.0) % Chloride 112 H (96-109) mmol/L Est GFR (CKD-EPI)NonAf 58.8 L (60.0-200.0) Glucose 112 H (70-110) mg/dL POC Glucose (mg/dL) 156 H 196 H (75-99) mg/dL Calcium 7.2 L (8.7-10.3) mg/dL AST 51 H (14-35) U/L Total Protein 5.3 L (6.2-8.2) g/dL Albumin 3.30 L (3.80-4.90) g/dL Procalcitonin (0.02-0.09) ng/mL
[2020-02-17 17:19] LABS: Glucose,Whole Blood 196 mg/dL (75-99)
[2020-02-17] MEDS: PANTOPRAZOLE 40 MG TABLET PO SCH (20:31)
[2020-02-17] MEDS: INSULIN DETEMIR (LEVEMIR) 100 UNIT/ML SYR SQ SCH (20:33)
[2020-02-17 20:51] LABS: Glucose,Whole Blood 311 mg/dL (75-99)
[2020-02-17] MEDS: QUEtiapine 25 MG TAB PO PRN (23:13)
[2020-02-18] MEDS: SODIUM CHLORIDE 0.9% 1,000 ML IV SCH ×2 (01:11→16:43)
[2020-02-18] MEDS: methocarbamoL 500 MG TAB PO SCH ×2 (05:26→14:22)
[2020-02-18] MEDS: ACETAMINOPHEN TAB 325 MG TAB PO SCH ×2 (05:27→14:21)
[2020-02-18 07:18] LABS: Glucose,Whole Blood 90 mg/dL (75-99)
[2020-02-18] MEDS: INSULIN ASPART (NovoLOG) 100 UNIT/ML VIAL SQ SCH ×2 (07:20→12:49)
[2020-02-18] MEDS: FERROUS SULFATE 325 MG TAB PO SCH (08:26)
[2020-02-18] MEDS: polyethylene glycoL 3350 17 GM POWD.PACK PO SCH (08:26)
[2020-02-18] MEDS: dexAMETHasone 2 MG TAB PO SCH (08:26)
[2020-02-18] MEDS: ENOXAPARIN 30 MG/0.3 ML SYRINGE SQ SCH (08:26)
[2020-02-18] MEDS: TAMSULOSIN 0.4 MG CAP.ER.24H PO SCH (08:27)
[2020-02-18] MEDS: SERTRALINE 100 MG TAB PO SCH (08:27)
[2020-02-18] MEDS: PANTOPRAZOLE 40 MG TABLET PO SCH (08:27)
[2020-02-18] MEDS: amLODIPine 5 MG TAB PO SCH ×2 (10:14→12:49)
[2020-02-18 10:29] LABS: Basophils % (A) 0 %; Eosinophils % (A) 0 %; HCT 27.2 % (39.0-53.0); HGB 9.1 gm/dL (13.0-17.5); Hypochromasia Slight; Lymphocytes # (A) 0.4 k/uL (1.0-4.8); Lymphocytes % (A) 13 %; MCH 29.5 pg (25.0-35.0); MCHC 33.3 g/dL (31.0-37.0); MCV 88.6 fL (80.0-100.0); Mean Platelet Volume 7.3; Monocytes # (A) 0.2 k/uL (0-1.0); Monocytes % (A) 7 %; Neutrophils # (A) 2.8 k/uL (1.3-7.7); Neutrophils % (A) 79 %; Platelet Count 166 k/uL (150-450); Poikilocytosis Slight; RBC 3.07 m/uL (4.30-5.90); RDW 14.6 % (11.5-15.5); WBC 3.5 k/uL (3.8-10.6)
[2020-02-18 10:49] LABS: African American GFR (CKD) 68 (>60 ml/min/1.73 sqM); Anion Gap 4 mmol/L; Blood Urea Nitrogen 21 mg/dL (9-20); Calcium 7.3 mg/dL (8.4-10.2); Carbon Dioxide 24 mmol/L (22-30); Chloride 112 mmol/L (98-107); Glucose 136 mg/dL (74-99); Non-African American GFR(CKD) 59 (>60 ml/min/1.73 sqM); Sodium 140 mmol/L (137-145)
[2020-02-18 10:54] VITALS: PULSE 51
[2020-02-18 11:21] LABS: Glucose,Whole Blood 155 mg/dL (75-99)
--- NOTE | 2020-02-18 11:56 | P.PN ---
Subjective Progress Note Date: 02/18/20 Principal diagnosis: COVID 19 infection, weakness, altered mental status, diarrhea 74-year-old white male patient who was at the [facility] on the [place] following his surgery on the right foot, contracted the COVID 19 virus a week ago. Since that time patient has had the diarrhea, he did have an episode of vomiting today, he's been feeling extremely weak, dehydrated, unable to get up and around. His right foot remains in the hard cast. He denied any fever or chills, he is let hargic, he is resting on the gurney in the emergency department, he is able to answer simple questions, but for the most part he is a poor historian. Medical history is that of hypertension, diabetes mellitus, lifetime nonsmoker, parathyroid surgery prostate surgery. Patient was febrile on presentation with a temp of 100.4F. Chest x-ray showed bilateral multifocal infiltrates consistent with COVID 19. His lab work showed a leukopenia with white blood cell count of 2.3, hemoglobin of 10.6, lymphopenia with lymphocyte, 0.3, electrolytes were within normal limits, BUN was 22 creatinine is 1.28, lactic acid was 0.9, AST was 64, ALT and alkaline phosphatase were within normal limits, troponin was 0.015, urinalysis showed 2+ protein, trace blood no clear evidence of infection. He is on room air, with a pulse ox of 99%, blood pressure is 154/93, he is in sinus mechanism on the monitor, [place] any shortness of breath, seeing IV fluids with 0.9 normal saline at a rate of 75 ML per hour, he received a liter fluid bolus, dexamethasone was started in the emergency department On the 02/17/2020 patient seen in follow-up in the emergency department, he still awaiting a bed on the floor, he is much more awake today, responsive, he is answering questions, he denies any shortness of breath, denies any nausea vomiting, no abdominal pain, or diarrhea, he is on 2 L of oxygen with pulse ox of 98%, vital signs have a stable, no fever or chills, he continues on IV hydration currently infusing at 100 ML per hour. His lab work has been reviewed, showing what little, 2.2, hemoglobin is 9.2, electrolytes are unremarkable, with the exception of chloride which is mildly elevated at 112, possibly from saline infusion, his a renal profile slightly improved, with creatinine down to 1.2, and BUN of 24, urinalysis did not show any evidence of infection, his pro-calcitonin level was low at 0.12, his vital signs have been stable, he denies any cough or congestion. Remains on oral Decadron, he is receiving anticoagulation with Lovenox 30 mg twice daily, Today's evaluation on 02/18/2020 patient is seen in follow-up on [facility] surgical floor. Is currently on 3 L of oxygen and the pulse ox of 100%, room air pulse ox was 96%, his been afebrile, he is breathing comfortably, he denies any cough, she still remains generally weak and tired, still has some nausea, and he is not taking in much in the way of oral intake. Jayme is on IV fluids, 0.9 normal saline at a rate of 100 ML per hour. He is on anticoagulation with Lovenox at 30 mg twice a day, and he is receiving oral Decadron 6 mg on a daily basis, his labs have been reviewed showing white blood cell count 3.5, hemoglobin 9.1, serum sodium is 140, potassium is 4.0, chloride is 112, B1 is 21 creatinine is 1.2, his had no fever or chills. Objective - Vital Signs Vital signs: Vital Signs Temp 97.5 F L 02/18/20 10:27 Pulse 51 L 02/18/20 10:27 Resp 17 02/18/20 10:27 BP 172/80 02/18/20 10:27 Pulse Ox 96 02/18/20 11:41 Intake & Output 02/17/20 02/18/20 02/18/20 18:59 06:59 18:59 Intake Total 360 1200 Output Total 800 1900 300 Balance -440 -700 -300 Weight 76.657 kg Intake: Intake, IV Titration 900 Amount Sodium Chloride 0.9% 1, 900 000 ml @ 100 mls/hr IV . Q10H [facility] Rx#:[id number] Oral 360 300 Output: Urine 800 1900 300 Uretheral (Marsh) 300 Other: Voiding Method Indwelling Catheter Indwelling Catheter # Bowel Movements 0 - Exam GENERAL EXAM: Much more arousable, awake on today's exam, 74-year-old white male, resting in the gurney in the emergency department, on room air, with pulse ox of 99%, able to answer simple questions, but appears to be comfortable in no apparent distress. HEAD: Normocephalic/atraumatic. EYES: Normal reaction of pupils, equal size. Conjunctiva pink, sclera white. NOSE: Clear with pink turbinates. THROAT: No erythema or exudates. NECK: No masses, no JVD, no thyroid enlargement, no adenopathy. CHEST: No chest wall deformity. Symmetrical expansion. LUNGS: Equal air entry with no crackles, wheeze, rhonchi or dullness. CVS: Regular rate and rhythm, normal S1 and S2, no gallops, no murmurs, no rubs ABDOMEN: Soft, nontender. No hepatosplenomegaly, normal bowel sounds, no guarding or rigidity. EXTREMITIES: No clubbing, no edema, no cyanosis, 2+ pulses and upper and lower extremities. MUSCULOSKELETAL: Muscle strength and tone normal. Right foot with a heart cath in place SPINE: No scoliosis or deformity SKIN: No rashes CENTRAL NERVOUS SYSTEM: Confused and oriented -1. No focal deficits, tone is normal in all 4 extremities. - Labs CBC & Chem 7: 02/18/20 09:58 02/18/20 09:58 Labs: Abnormal Lab Results - Last 24 Hours (Table) 02/17/20 02/17/20 02/18/20 Range/Units 17:08 20:28 09:58 WBC 3.5 L (3.8-10.6) k/uL RBC 3.07 L (4.30-5.90) m/uL Hgb 9.1 L (13.0-17.5) gm/dL Hct 27.2 L (39.0-53.0) % Lymphocytes # 0.4 L (1.0-4.8) k/uL Chloride (98-107) mmol/L BUN (9-20) mg/dL Glucose (74-99) mg/dL POC Glucose (mg/dL) 196 H 311 H (75-99) mg/dL Calcium (8.4-10.2) mg/dL 02/18/20 02/18/20 Range/Units 09:58 11:19 WBC (3.8-10.6) k/uL RBC (4.30-5.90) m/uL Hgb (13.0-17.5) gm/dL Hct (39.0-53.0) % Lymphocytes # (1.0-4.8) k/uL Chloride 112 H (98-107) mmol/L BUN 21 H (9-20) mg/dL Glucose 136 H (74-99) mg/dL POC Glucose (mg/dL) 155 H (75-99) mg/dL Calcium 7.3 L (8.4-10.2) mg/dL Assessment and Plan Plan: Assessment: #1. Weakness, dehydration, diarrhea related to 19 infection, improved #2. Bilateral pulmonary infiltrates predominantly in peripheral areas consistent with COVID19 infection #3. Leukopenia #4. Lymphopenia related to COVID 19 infection #5. Acute kidney injury related to dehydration #6. Recent hospitalization for fecal stasis, with symptoms of nausea vomiting related to narcotics #7. Recent injury to both ankles and vertebra secondary to a fall from a ladder, she still has a hard cast on the right foot and is currently undergoing rehab #8. Recent history of urinary tract infection with cystitis #9. Hypertension #10. BPH #11. Diabetes mellitus type 2 #12. Hypertension Plan: Patient has been stable overnight, has been afebrile, not requiring supplemental oxygen currently, no pulmonary complaints, no fever or chills, renal profile has improved, continues on IV hydration, from pulmonary perspective he can be considered for discharge home today, and he is inquiring about surgery for his right ankle, and we will need follow-up with orthopedic surgery on outpatient basis. Finish oral course of Decadron for a total of 10 days I performed a history & physical examination of the patient and discussed their management with my nurse practitioner, Leanne Leyva. I reviewed the nurse practitioner's note and agree with the documented findings and plan of care. Lung sounds are positive for diminished breath sounds. The findings and the impression was discussed with the patient. I attest to the documentation by the nurse practitioner. Time with Patient: Less than 30
--- NOTE | 2020-02-18 16:07 | P.DS ---
Providers Date of admission: 02/16/20 14:15 Expected date of discharge: 02/18/20 Attending physician: Mone Puentes Consults: 02/16/20 14:15 Consult Physician Urgent Consulting Provider: Dave Palmer Reason/Comments: COVID pneumonia Do you want consulting provider notified?: Yes Primary care physician: Ewa Young Hospital Course: Final diagnosis -Generalized weakness, nausea, diarrhea dehydration: Secondary to covid 19 infection. Improved at this time. -Covid 19 pneumonia with bilateral pulmonary infiltrates -Acute renal failure secondary to dehydration and poor by mouth intake, improving -Altered mental status and toxic encephalopathy related to medications and infection as mentioned above -Recent fall with a fracture and a cast to the right foot -Hypertension -Benign prostatic hypertrophy -Type 2 diabetes mellitus -Hypertension -DVT prophylaxis -GI prophylaxis Discharge disposition Patient is being discharged in a stable condition with guarded prognosis to home and will have home care in the outpatient setting. Patient will follow-up with Dr. Rodriguez in the outpatient setting upon discharge. Patient is to continue with dexamethasone 6 mg daily for the next 7 days to complete the course. Patient is also instructed to keep his appointment with orthopedics on Sunday to discuss possible surgery on Sunday for the right foot as already scheduled. Total time taken is greater than 35 minutes. History of present illness This is a 74-year-old male who was recently admitted with Covid 19, nausea, and vomiting and was being closely monitored. Pulmonary was following closely and stable from their standpoint to return home. Patient is currently 96% on room air tolerating well. Patient is maintained on dexamethasone and will continue w ith 6 mg daily for the next 7 days to complete the course. Patient has been tolerating diet with no nausea or vomiting noted per staff. Patient continues to have right foot pain although is following with orthopedic outpatient and does have a scheduled appointment on Sunday which patient was instructed to continue with for possible surgery on Sunday. Patient was evaluated by physical therapy recommending subacute rehab although patient and family state they were at 2 different facilities and had poor care and a refusing subacute rehab at this time. Case management has arranged for home care in the outpatient setting. Patient states he would like to go home. Currently no reports of chest pain, shortness of breath, or palpitations. Patient is afebrile. No reports of nausea or vomiting and patient is tolerating diet. Patient will be going discharged today. Patient will continue with home care in the outpatient setting. On exam vital signs are stable. Temp is 97.5F, pulse is 51, respirations are 17, blood pressure is 172/80, oxygen saturation is 96% on room air. Cardio S1, S2 are muffled. Respiratory system shows diminished breath sounds at the bases with no wheezing or rhonchi noted. Nervous system shows no focal deficits and needs to continue with nonweightbearing of the right lower extremity. Please refer to medication reconciliation sheet for a list of medications. Patient Condition at Discharge: Stable Plan - Discharge Summary New Discharge Prescriptions: New dexAMETHasone [Hexadrol] 6 mg PO DAILY 7 Days #7 tab methocarbamoL [Robaxin] 500 mg PO TID@0600,1400,2200 tab Continue metFORMIN HCL 250 mg PO DAILY@0800 Sertraline [Zoloft] 100 mg PO DAILY Insulin Detemir [Levemir Flextouch] 20 units SQ HS@2100 Magnesium Hydroxide [Milk of Magnesia] 2,400 mg PO DAILY PRN PRN Reason: Constipation bisacodyL [Dulcolax] 10 mg RECTAL DAILY PRN PRN Reason: Constipation Na Phos,M-B/Na Phos,Di-Ba [Fleet Adult] 133 ml RECTAL DAILY PRN PRN Reason: Constipation Acetaminophen Tab [Tylenol] 975 mg PO TID@0600,1400,2200 Enoxaparin Sodium [Lovenox] 30 mg SQ BID Ferrous Sulfate [Iron] 325 mg PO BID Tamsulosin HCl [Flomax] 0.4 mg PO DAILY Polyethylene Glycol 3350 [Miralax] 17 gm PO DAILY amLODIPine BESYLATE 5 mg PO DAILY glipiZIDE [Glucotrol] 2.5 mg PO DAILY@0800 Atorvastatin Calcium [Lipitor] 20 mg PO HS@2100 INSULIN ASPART (NovoLOG) [NovoLOG (formulary)] See Protocol SQ AC-TID LORazepam [Ativan] 0.5 mg PO HS #4 tab LORazepam [Ativan] 0.25 mg PO BID@0900,1700 #6 tab methocarbamoL [Robaxin] 500 mg PO TID@0600,1400,2200 #6 tab traMADol HCl [Ultram] 50 mg PO Q6H PRN #12 tab PRN Reason: Pain Discharge Medication List Insulin Detemir [Levemir Flextouch] 20 units SQ HS@2100 01/18/20 [History] Sertraline [Zoloft] 100 mg PO DAILY 01/18/20 [History] metFORMIN HCL 250 mg PO DAILY@0800 01/18/20 [History] Acetaminophen Tab [Tylenol] 975 mg PO TID@0600,1400,2200 01/26/20 [History] Atorvastatin Calcium [Lipitor] 20 mg PO HS@2100 01/26/20 [History] Enoxaparin Sodium [Lovenox] 30 mg SQ BID 01/26/20 [History] Ferrous Sulfate [Iron] 325 mg PO BID 01/26/20 [History] Magnesium Hydroxide [Milk of Magnesia] 2,400 mg PO DAILY PRN 01/26/20 [History] Na Phos,M-B/Na Phos,Di-Ba [Fleet Adult] 133 ml RECTAL DAILY PRN 01/26/20 [History] Polyethylene Glycol 3350 [Miralax] 17 gm PO DAILY 01/26/20 [History] Tamsulosin HCl [Flomax] 0.4 mg PO DAILY 01/26/20 [History] amLODIPine BESYLATE 5 mg PO DAILY 01/26/20 [History] bisacodyL [Dulcolax] 10 mg RECTAL DAILY PRN 01/26/20 [History] glipiZIDE [Glucotrol] 2.5 mg PO DAILY@0800 01/26/20 [History] INSULIN ASPART (NovoLOG) [NovoLOG (formulary)] See Protocol SQ AC-TID 02/16/20 [History] LORazepam [Ativan] 0.25 mg PO BID@0900,1700 #6 tab 02/18/20 [Rx] LORazepam [Ativan] 0.5 mg PO HS #4 tab 02/18/20 [Rx] dexAMETHasone [Hexadrol] 6 mg PO DAILY 7 Days #7 tab 02/18/20 [Rx] methocarbamoL [Robaxin] 500 mg PO TID@0600,1400,2200 tab 02/18/20 [Rx] methocarbamoL [Robaxin] 500 mg PO TID@0600,1400,2200 #6 tab 02/18/20 [Rx] traMADol HCl [Ultram] 50 mg PO Q6H PRN #12 tab 12/09/20 [Rx] Follow up Appointment(s)/Referral(s): [facility], [NON-STAFF] - Jerzy Haney MD [REFERRING] - 3 Days (Office is closed please call and make follow up appointment tomorrow.) Patient Instructions/Handouts: Viral Pneumonia (DC) Activity/Diet/Wound Care/Special Instructions: Activity Limited until follow-up Continue heart healthy diet Continue to monitor blood sugars before meals at bedtime and treat accordingly Continue with dexamethasone for the next 7 days and then may discontinue to complete the course Follow-up with orthopedics in the outpatient setting as previously scheduled Follow-up with primary care provider upon discharge Discharge Disposition: TRANSFER TO SNF/ECF
[2020-02-18 16:44] VITALS: BP 176/87; RESP 22; TEMP 98.1
== END 2020-02-18 17:35 | disposition home health service (06) | DRG 177 ==
LOC: EC 11:58 → 4SSUR 14:15 → 6NMEDSUR 02-17 15:23
PROVIDERS: ADMIT Hospitalist; ATTEND Hospitalist
DX: U07.1 COVID-19 (principal); J12.89 Other viral pneumonia; G92 Toxic encephalopathy; N17.9 Acute kidney failure, unspecified; N40.0 Benign prostatic hyperplasia without lower urinary tract symptoms; D72.810 Lymphocytopenia; E11.9 Type 2 diabetes mellitus without complications; E86.0 Dehydration; T50.905A Adverse effect of unspecified drugs, medicaments and biological substances, initial encounter; I10 Essential (primary) hypertension; Z79.01 Long term (current) use of anticoagulants; Z79.4 Long term (current) use of insulin; Z79.899 Other long term (current) drug therapy; R45.1 Restlessness and agitation; Z87.442 Personal history of urinary calculi; Z87.440 Personal history of urinary (tract) infections; Z83.3 Family history of diabetes mellitus; Z80.8 Family history of malignant neoplasm of other organs or systems; Z80.0 Family history of malignant neoplasm of digestive organs; R11.2 Nausea with vomiting, unspecified
CPT/HCPCS: 36415; 71046; 80048; 80053; 81001; 83605; 83735; 84145; 84484; 85025; 85027; 85379; 85610; 85730; 93005; 96361; 96372; 96374; 96375; 96376; 99285

== ENCOUNTER → 2020-03-23 | Outpatient (CLI) | payer MEDICARE ==
[~2020-03-23] MED LIST: IODINE/POTASS IOD (LUGOLS) BOTTLE TOPICAL ONE
--- NOTE | 2020-03-24 09:03 | NM ---
EXAMINATION TYPE: NM DatScan Brain SPECT DATE OF EXAM: 03/23/2020 COMPARISON: NONE HISTORY: Trauma TECHNIQUE: 10 drops of Lugol's solution was administered 1 hour prior to injection as a thyroid bloc lisa agent. After the administration of 4.47 mCi I-123 Ioflupane DaTscan. Images obtained 3 hours p ost injection. SPECT images of the brain were acquired with axial and coronal reconstructions. FINDINGS: The axial SPECT images demonstrate normal background activity. Accounting for head tilt, t here appears to be slight asymmetrically blunted comma-shaped appearance of the right corpus striatum . IMPRESSION: Slightly blunted striatal activity on the left may indicate early changes of idiopathic P arkinson's disease or Parkinsonian syndrome.
== END | disposition home or self-care (01) ==
LOC: RADNMMAIN 10:47
PROVIDERS: ATTEND Psychiatry & Neurology Neurology
DX: R93.89 Abnormal findings on diagnostic imaging of other specified body structures (principal); R25.1 Tremor, unspecified
CPT/HCPCS: 78803; A9584